=== PATIENT | male | born 1985 | race African-American/Black ===

== ENCOUNTER 2022-06-22 12:03 | Emergency (ER) | payer BC, SELFPAY ==
--- NOTE | 2022-06-22 12:06 | ED.CHESTPAIN ---
HPI - Chest Pain General Chief Complaint: Chest Pain Stated Complaint: Chest pain, shortness of breath, headache Time Seen by Provider: 06/22/22 12:06 Source: patient, family and RN notes reviewed History of Present Illness HPI narrative: Patient is a 36-year-old male who presents the urgent care with complaints of chest pain, shortness of breath and headache. Patient states that it started at 3 AM after an episode of his chronic nausea took place. Patient denies of any abdominal pain. Denies of any history of pancreatitis or heart disease. No other acute complaints. Patient is diaphoretic. Patient read a plan of care. Some parts of this dictation were generated by voice recognition software and may contain typographical and/or grammatical inaccuracies. Related Data Home Medications Medication Instructions Recorded Confirmed dicyclomine 10 mg capsule 10 mg PO TID 06/22/22 06/22/22 escitalopram oxalate 10 mg tablet 10 mg PO DAILY 06/22/22 06/22/22 pantoprazole 40 mg tablet,delayed 10 mg PO DAILY 06/22/22 06/22/22 release terbinafine HCl 250 mg tablet 250 mg PO DAILY 06/22/22 06/22/22 Allergies Allergy/AdvReac Type Severity Reaction Status Date / Time No Known Allergies Allergy Verified 06/22/22 12:18 Review of Systems Review of Systems: CONSTITUTIONAL: Denies fever, chills, or sweats. EYES: Denies visual changes, redness, or discharge. ENT: Denies rhinorrhea, congestion, sore throat, or otalgia. CARDIOVASCULAR: Reports of chest pain without palpitations or edema RESPIRATORY: Denies cough or dyspnea. GASTROINTESTINAL: Reports of acute on chronic nausea and vomiting GENITOURINARY: Denies dysuria or hematuria. SKIN: Denies rash or itching. MUSCULOSKELETAL: Denies back pain, joint pain, or myalgia. NEUROLOGIC: Denies headache, numbness, or weakness. All other systems reviewed are negative, except as documented in HPI. PMFSH Comments At the time of my signature, I reviewed and agree with the nursing past medical, surgical, social, and family history. There is no relevant family history pertinent to the patient complaint. Exam Narrative: GENERAL: This is a well-nourished, well-developed patient. Diaphoretic and anxious HEAD: normocephalic, atraumatic. EYES: PERRL. Sclera clear/white. Vision is grossly intact. EARS: External ears normal NOSE: External nose normal with no obvious nasal discharge, nares without redness, no rhinorrhea. THROAT: Mucous membranes moist NECK: Neck supple, non-tender without lymphadenopathy, masses or thyromegaly. CARDIOVASCULAR: Regular rate and rhythm without murmurs, gallops, or rubs. RESPIRATORY: Clear to auscultation. Breath sounds equal bilaterally. No wheezes, rales, or rhonchi. GASTROINTESTINAL: Abdomen soft, diffuse tenderness , nondistended. Bowel sounds are active. SKIN: warm, intact with no suspicious lesions or rash, good texture and turgor. NEURO: awake, alert, and oriented to person, place and time. There were no obvious focal neurologic abnormalities. EXTREMITIES: No clubbing, cyanosis, or edema. Course Course Level of Care: Express Care Visit Vital Signs Vital signs: Vital Signs Oxygen Flow Rate 2 06/22/22 12:06 Temperature 100.4 F H 06/22/22 12:15 Pulse Rate 86 06/22/22 12:15 Respiratory Rate 20 06/22/22 12:15 Blood Pressure 172/93 H 06/22/22 12:15 Pulse Oximetry 100 06/22/22 12:15 Oxygen Delivery Room Air 06/22/22 12:15 Oxygen Flow Rate 2 06/22/22 12:06 Reviewed-patient is informed that they may have pre-hypertension or hypertension based on a blood pressure reading in the department. I recommend the patient call the primary care provider listed on their discharge instructions or a physician of their choice this week to arrange follow-up for further evaluation of possible pre-hypertension or hypertension. Transfer Transfered to: [facility] Transportation: ALS Transfer rationale: Chest pain, diaphoresis, shortness o
[2022-06-22 12:15] VITALS: BP 172/93; PULSE 86; RESP 20; TEMP 38; O2SAT 100
[2022-06-22] MEDS: ASPIRIN 81 MG CHEWABLE TABLET 324 MG PO (12:20)
--- NOTE | 2022-06-22 12:26 | ECG_ITS ---
Measurements Intervals [place] Rate: 86 P: 63 DE: 158 QRS: 58 QRSD: 81 T: 22 QT: 340 QTc: 407 Interpretive Statements SINUS RHYTHM NORMAL ECG NO PREVIOUS ECG AVAILABLE FOR COMPARISON Electronically Signed On 06-22-2022 12:52:04 CDT by Gunner Reaves D.O.
== END 2022-06-22 12:25 | disposition short-term general hospital (02) ==
PROVIDERS: Emergency Provider Nurse Practitioner Family
DX: R07.9 Chest pain, unspecified (principal); F41.9 Anxiety disorder, unspecified; F32.A Depression, unspecified
CPT/HCPCS: 93005; 99215; A9270; G0463

== ENCOUNTER 2022-08-05 13:45 | Emergency (ER) | payer BC, SELFPAY ==
--- NOTE | 2022-08-05 13:48 | PC.NURSE ---
After checking pt in, pt looks at waiting room and asks if it is a long wait. This RN states that we are full. Pt replies that ill go somewhere else . Ambulated to exit
== END 2022-08-05 13:48 | disposition left against medical advice (07) ==
DX: Z53.21 Procedure and treatment not carried out due to patient leaving prior to being seen by health care provider (principal)
CPT/HCPCS: 99199

== ENCOUNTER 2024-06-06 15:42 | Emergency (ER) | payer BC, SELFPAY ==
[2024-06-06] VITALS (9 sets, daily range): BP systolic 140–159; BP diastolic 70–106; PULSE 64–84; RESP 16–24; TEMP 36.1–37; O2SAT 91–100
--- NOTE | ~2024-06-06 | CT_ITS ---
EXAMINATION: CT abdomen pelvis w con DATE: 06/06/2024 17:36 INDICATION: Left lower quadrant abdominal pain. TECHNIQUE: Computed tomography (CT) of the abdomen and pelvis was performed with 100 mL Omnipaque 350 intravenous contrast. Automated exposure control and iterative reconstruction technique were employe d. The dose-length product was 691.07 mGy-cm. COMPARISON: None. FINDINGS: The visualized portions of lung bases demonstrate mild atelectasis. No pleural effusion. Th e heart size is normal. No pericardial effusion. There is bilateral gynecomastia. The liver, gallblad gabriel, spleen, pancreas, adrenal glands, and kidneys are normal. There are no dilated loops of bowel. T he appendix is normal. There are no pathologically enlarged lymph nodes. There is no free intraperito hernando fluid. There is a 11 mm sclerotic lesion in right ilium, probably a benign bone island. IMPRESSION: 1. No etiology for the patient's symptoms. Reviewed, dictated and finalized at location A.
--- NOTE | 2024-06-06 15:47 | ED.NAVMDI ---
HPI - Nausea/Vomiting/Diarrhea General Chief complaint: Abdominal Pain Stated complaint: VOMITING Time Seen by Provider: 06/06/24 15:47 Source: patient Mode of arrival: ambulatory Limitations: no limitations History of Present Illness HPI Narrative: 38-year-old male with a history of irritable bowel syndrome ( unremarkable colonoscopy) on dicyclomine, peptic ulcer disease on Protonix presents to the ED with a 10 hour history of -- nausea with multiple episodes of vomiting -- multiple episodes of watery diarrhea -- severe pain in the left lower quadrant -- lightheadedness no fever. Complains of chills. No history of any abdominal surgeries. the patient has not eaten anything out of the ordinary. No other family members are sick. MD elicited complaint: nausea, vomiting and diarrhea Onset (ago): hour(s) ( 10 hours) Description of vomiting: watery Description of diarrhea: watery Associated nausea: Yes Associated abdominal pain: Yes Location of pain: LLQ Pain consistency: constant Severity: severe Quality: cramping Exacerbating factors: none Relieving factors: none Related Data Allergies Allergy/AdvReac Type Severity Reaction Status Date / Time No Known Allergies Allergy Verified 06/06/24 16:00 Review of Systems Review of Systems: All systems reviewed & are unremarkable except as noted in HPI and below Constitutional: Constitutional: Reports as per HPI and Reports no additional constitutional complaints Eyes: Eyes: Reports as per HPI and Reports no additional eye complaints ENT: Reports system reviewed and no additional complaints, except as documented and Reports as per HPI Cardiovascular: Cardiovascular: Reports as per HPI and Reports no additional cardiovascular complaints Respiratory: Respiratory: Reports as per HPI and Reports no additional respiratory complaints Gastrointestinal: Gastrointestinal: Reports as per HPI and Reports no additional gastrointestinal complaints Genitourinary: Genitourinary: Reports no additional male genitourinary complaints and Reports as per HPI Musculoskeletal: Musculoskeletal: Reports no additional musculoskeletal complaints and Reports as per HPI Integumentary/Breasts: Skin/Breast: Reports system reviewed and no additional complaints, except as docu and Reports as per HPI Neurologic: Reports system reviewed and no additional complaints, except as documented and Reports as per HPI Psychiatric: Psychiatric: Reports no additional psychiatric complaints and Reports as per HPI Endocrine: Endocrine: Reports no additional endocrine complaints and Reports as per HPI Hematologic/Lymphatic: Hematologic/Lymphatic: Reports no additional hematologic/lymphatic complaints and Reports as per HPI Allergic/Immunologic: Allergic/Immunologic: Reports no additional allergic/immunologic complaints and Reports as per HPI [facility] Past Medical History Medical History (Updated 06/06/24 @ 18:01 by Charli Dawson MD) IBS (irritable bowel syndrome) Normal colonoscopy Peptic ulcer disease Exam Narrative: blood pressure 157/106. Heart rate of 64. Afebrile. Const: General: ill appearing Orientation/consciousness: patient oriented x3 Limitations: no limitations HENMT: Head: normal to inspection Ears: external ears normal Face/Nose/Sinus: Normal external nose present Face and sinus: normal facial exam Mouth: Yes Normal oral and palatal mucosa present Throat: posterior oropharynx normal Eyes: Conjunctivae: conjunctivae normal Cornea: corneas normal Pupils: Equal, round and reactive pupils present EOM: EOMs intact bilaterally Direct Ophthalmoscopy: no photophobia Neck: Neck: normal visual inspection, no lymphadenopathy and no meningeal signs Chest: Chest palpation & inspection: normal inspection of the chest Resp: Effort & Inspection: normal respiratory effort Auscultation: clear to auscultation bilaterally Cardio: Rate: regular rate Rhythm: regular rhythm GI: GI Pa
[2024-06-06] MEDS: LACTATED RINGERS 1,000 ML 999 ML IV CONT ×2 (16:01→17:34)
[2024-06-06] MEDS: PROCHLORPERAZINE EDISYLATE 10 MG/2 ML VIAL IV PUSH (16:03)
[2024-06-06] MEDS: MORPHINE SULFATE (*CRX) 2 MG/ML INJ IV PUSH (16:03)
[2024-06-06 16:13] LABS: Basophils Absolute Auto 0.03 K/mm3 (0.00-0.10); Basophils Percent Auto 0.4 % (0.0-1.0); Eosinophils Absolute Auto 0.01 K/mm3 (0.02-0.50); Eosinophils Percent Auto 0.1 % (1.0-6.0); Hemoglobin 15.5 g/dL (14.0-18.0); Immature Granulocyte Absolute 0.02 K/mm3 (0.00-0.00); Immature Granulocyte Percent A 0.3 % (0.0-0.0); Mean Platelet Volume 10.6 fl (8.7-11.0); Monocytes Absolute Auto 0.28 K/mm3 (0.10-0.90); Neutrophils Absolute Auto 5.51 K/mm3 (1.70-7.20); Neutrophils Percent Auto 78.2 % (50.0-70.0); Platelet Count Result 254 K/mm3 (150-420); Red Cell Distribution Width 12.2 % (11.6-14.4); White Blood Count 7.1 K/mm3 (4.8-10.8)
[2024-06-06 16:23] LABS: Prothrombin Time 10.7 Seconds (9.50-12.1)
[2024-06-06 16:26] LABS: Alanine Aminotransferase 24 U/L (16-63); Albumin Level 4.9 g/dL (3.4-5.0); Alkaline Phosphatase 90 U/L (46-116); Anion Gap 17 mmol/L (4-12); Aspartate Amino Transferase 17 U/L (15-37); Bilirubin,Total 0.5 mg/dL (0.00-1.00); Blood Urea Nitrogen 5 mg/dL (7-18); Calcium 10.3 mg/dL (8.5-10.1); Carbon Dioxide 23 mmol/L (21-32); Chloride 99 mmol/L (98-108); Estimated CRCL calculation 84 ml/min; Estimated Glomerular Filt Rate > 60; Glucose 129 mg/dL (70-99); Lipase 41 U/L (16-77); Magnesium 1.7 mg/dL (1.8-2.4); Osmolality Calculated 287 mOsm/kg (285-295); Potassium 3.4 mmol/L (3.5-5.1); Sodium 139 mmol/L (136-145); Total Protein 8.6 g/dL (6.4-8.2)
[2024-06-06 16:31] LABS: Lactic Acid Reflex 2.4 mmol/L (0.4-2.0)
[2024-06-06 16:46] LABS: SARS-CoV-2 RNA PCR Negative (Negative)
[2024-06-06 16:51] LABS: Influenza A QL RT-PCR Negative (Negative); Influenza B QL RT-PCR Negative (Negative); RSV RNA, RT-PCR Negative (Negative)
[2024-06-06] MEDS: MAGNESIUM SULF 2 GM/WATER 50ML 2 GM/50 ML BAG IVPB (17:34)
[2024-06-06 19:11] LABS: Reflex Lactic Acid Yes or No Add Lactic
--- NOTE | 2024-06-21 09:55 | PC.NURSE ---
2gm magnesuim sulfate iv stopped at 1815 during pt discharge. infusion complete at that time.
== END 2024-06-06 18:15 | disposition home or self-care (01) ==
PROVIDERS: Emergency Provider Internal Medicine Critical Care Medicine
DX: K52.9 Noninfective gastroenteritis and colitis, unspecified (principal); E87.8 Other disorders of electrolyte and fluid balance, not elsewhere classified; Z20.822 Contact with and (suspected) exposure to COVID-19
CPT/HCPCS: 36415; 74177; 80053; 83605; 83690; 83735; 85025; 85610; 87637; 96361; 96365; 96375; 99284; J0780; J2270; J3475; J7120; Q9967

== ENCOUNTER 2025-02-07 03:04 | Emergency (ER) | payer BC, SELFPAY ==
--- NOTE | ~2025-02-07 | CT_ITS ---
Non-contrast CT scan of the Abdomen and Pelvis Clinical indication: Abdominal pain Technique: 2.5 mm axial scans were obtained through the abdomen and pelvis without intravenous or or al contrast. Dose reduction technique was used on this scan by utilizing automated exposure control a nd iterative reconstruction technique. The dose-length product (DLP) was 271.33 mGy-cm. COMPARISON: 06/06/2024 Findings: Images through the lung bases reveal no abnormalities. There is no evidence of renal or ureteral calculi. The kidneys and the ureters are nondilated. The liver, spleen, pancreas, gallbladder, and adrenals appear normal. There is no aortic aneurysm. There is no evidence of bowel obstruction. Questionable mild wall thickening of the transverse colon versus underdistention. Images through the pelvis were performed. There is no evidence of ascites or lymphadenopathy. Urinary bladder unremarkable. No pelvic mass seen. Bilateral L5 pars interarticularis defects are present, without subluxation. Impression: Questionable mild wall thickening transverse colon versus underdistention. Correlate for any possibil ity of infectious/inflammatory colitis. No other significant findings. Reviewed, dictated and finalized at [facility]. Impression: Questionable mild wall thickening transverse colon versus underdistention. Tamir elate for any possibility of infectious/inflammatory colitis. No other significant findings.
--- NOTE | 2025-02-07 03:06 | ED.NAVMDI ---
HPI - Nausea/Vomiting/Diarrhea General Chief complaint: Nausea/Vomiting/Diarrhea Stated complaint: n/v/d Time Seen by Provider: 02/07/25 03:05 Source: patient Mode of arrival: ambulatory Limitations: no limitations History of Present Illness HPI Narrative: 39-year-old male with a history of IBS, peptic ulcer disease presents to the ED with a 3 hour history of -- nausea with multiple episodes vomiting -- diffuse abdominal pain no fever chills no diarrhea patient has had prior episodes of abdominal pain /nausea/vomiting. One week ago he had similar symptoms. MD elicited complaint: nausea, vomiting and abdominal pain Pertinent past history: other ( Irritable bowel syndrome) Onset (ago): hour(s) ( 3 hours) Associated nausea: Yes Associated abdominal pain: Yes Location of pain: diffuse Radiation: diffuse Pain consistency: constant Severity: severe Quality: cramping Exacerbating factors: none Relieving factors: none Associated symptoms: denies other symptoms and nausea/vomiting Related Data Allergies Allergy/AdvReac Type Severity Reaction Status Date / Time No Known Allergies Allergy Verified 02/07/25 03:21 Review of Systems Review of Systems: All systems reviewed & are unremarkable except as noted in HPI and below PMFSH Past Medical History Medical History Normal colonoscopy Peptic ulcer disease IBS (irritable bowel syndrome) Exam Narrative: afebrile. blood pressure 130/53 Const: General: ill appearing Orientation/consciousness: patient oriented x3 Limitations: no limitations HENMT: Head: normal to inspection Ears: external ears normal Face/Nose/Sinus: Normal external nose present Face and sinus: normal facial exam Mouth: Yes Normal oral and palatal mucosa present Throat: posterior oropharynx normal Eyes: Conjunctivae: conjunctivae normal Cornea: corneas normal Pupils: Equal, round and reactive pupils present EOM: EOMs intact bilaterally Direct Ophthalmoscopy: no photophobia Neck: Neck: normal visual inspection, no lymphadenopathy and no meningeal signs Chest: Chest palpation & inspection: normal inspection of the chest Resp: Effort & Inspection: normal respiratory effort Auscultation: clear to auscultation bilaterally Cardio: Rate: regular rate Rhythm: regular rhythm GI: GI Palp: Yes Soft to palpation Other: diffuse tenderness without any rigidity /rebound : General: Yes no CVA tenderness Back/Spine/Pelvis: Back: no CVA tenderness Skin: General skin exam: normal color Rashes: no rashes Wounds: no wounds Neuro: General: patient oriented x3, moves all extremities, no meningeal signs, no focal motor deficits and CN's II-XI intact bilaterally Cranial nerves: Yes Nystagmus not present Speech: normal speech Extrem: General: normal to inspection and no clubbing, cyanosis or edema Psych: Mental Status: mental status grossly normal Affect: Anxious affect present Attitude: cooperative Course Course Emergency Course: nausea and vomiting abdominal wall clinical examination revealed generalized tenderness without any rigidity/ rebound. Patient was noted to be afebrile. White count was noted to be 11.6. The patient went on to have a CT of the abdomen and pelvis which revealed questionable mild thickening of the wall of the transverse colon. The patient does not have any diarrhea. Patient's pain has improved. Patient has received 1 L of IV fluids. Will discharge him with Augmentin for questionable colitis even though the patient does not have any diarrhea. Will advise the patient to take p.o. clears and have a follow-up with a physician. Vital Signs Vital signs: Vital Signs Temperature 36.6 C 02/07/25 03:10 Pulse Rate 87 02/07/25 03:10 Respiratory Rate 18 02/07/25 03:10 Blood Pressure 130/53 L 02/07/25 03:10 Pulse Oximetry 97 02/07/25 03:10 Oxygen Delivery Room Air 02/07/25 03:10 Temperature 36.1 C L 02/07/25 06:15 Pulse Rate 64 02/07/25 06:15 Respiratory Rate 18 02/07/25 06:15 Blood Pressure 144/90 H 02/07/25 06:15 Pulse Oximetry 97 02/07/25 06:15 Oxygen Delivery Room Air 02/07/25 06:15 MDM - Nausea/Vomiting/Diarrhea MDM Narrative Medical decision making narrative: Nausea and vomiting colitis Differential Diagnosis Differential diagnosis: Likely food poisoning, gastroenteritis and other ( IBS) Medical Records Attestation: I reviewed the patient's medical records. Lab Data Attestation: I reviewed the patient's lab results. 02/07/25 03:14 02/07/25 03:14 Labs: Lab Results 02/07/25 Range/Units 03:14 WBC 11.6 H (4.8-10.8) K/mm3 RBC 4.86 (4.70-6.10) M/mm3 Hgb 14.9 (14.0-18.0) g/dL Hct 43.7 (40.0-54.0) % MCV 89.9 (78.0-102.0) fL MCH 30.7 (27.0-31.0) pg MCHC 34.1 (32-36) g/dL RDW 13.2 (11.6-14.4) % Plt Count 312 (150-420) K/mm3 MPV 10.3 (8.7-11.0) fl Immature Gran % (Auto) 0.3 H (0.0-0.0) % Neut % (Auto) 66.3 (50.0-70.0) % Lymph % (Auto) 24.7 (18.0-42.0) % [place] % (Auto) 8.1 (2.0-11.0) % Eos % (Auto) 0.3 L (1.0-6.0) % Baso % (Auto) 0.3 (0.0-1.0) % Lymph # (Auto) 2.86 (1.10-4.50) K/mm3 [place] # (Auto) 0.94 H (0.10-0.90) K/mm3 Eos # (Auto) 0.03 (0.02-0.50) K/mm3 Baso # (Auto) 0.03 (0.00-0.10) K/mm3 Abs Immat Gran (auto) 0.03 H (0.00-0.00) K/mm3 Absolute Neuts (auto) 7.71 H (1.70-7.20) K/mm3 Absolute Nucleated RBC 0.00 (0.00-0.00) K/mm3 Nucleated RBC % 0.0 (0-0.0) % Sodium 141 (137-145) mmol/L Potassium 3.7 (3.4-5.0) mmol/L Chloride 101 (98-107) mmol/L Carbon Dioxide 27 (22-30) mmol/L Anion Gap Pending BUN 19 (9-20) mg/dL Creatinine 0.94 (0.7-1.3) mg/dL Estim Creat Clear Calc Pending Estimated GFR Pending Glucose 124 H (65-110) mg/dL Calculated Osmolality Pending Lactic Acid 2.3 H (0.7-2.0) mmol/L Calcium 10.4 H (8.4-10.2) mg/dL Magnesium 2.3 (1.6-2.3) mg/dL Total Bilirubin 0.5 (0.2-1.3) mg/dL AST 38 (17-59) U/L ALT 29 (6-50) U/L Alkaline Phosphatase 75 (38-126) U/L Troponin I < 0.012 (0.000-0.034) ng/mL Total Protein 9.0 H (6.3-8.2) g/dL Albumin 5.2 H (3.5-5.1) g/dL Lipase 65 (23-300) U/L Discharge Plan Discharge Clinical Impression: Colitis Nausea & vomiting Qualifiers: Vomiting type: unspecified Qualified Code(s): R11.2 - Nausea with vomiting, unspecified Patient Disposition: Home Condition: Stable Instructions: Antibiotic Form, Acute Nausea and Vomiting (DC), Colitis (ED) Patient Language: Marshallese Prescriptions: New ondansetron HCl 4 mg tablet 4 mg PO Q8H PRN (Reason: nausea and vomiting) 4 Days Qty: 14 0RF amoxicillin-pot clavulanate 875-125 mg tablet 1 tablet PO Q12H Qty: 14 0RF No Action prochlorperazine maleate [Compazine] 10 mg tablet 10 mg PO Q8H MDD 4 PRN (Reason: nausea and vomiting) Qty: 14 0RF dicyclomine 10 mg capsule 10 mg PO TID PRN (Reason: abdominal pain) Qty: 60 0RF Follow-up/Referrals: UNKNOWN,DOCTOR [Non-Staff] - Time of Disposition: 06:44
[2025-02-07 03:10] VITALS: BP 130/53; PULSE 87; RESP 18; TEMP 36.6; O2SAT 97
[2025-02-07] MEDS: PROCHLORPERAZINE EDISYLATE 10 MG/2 ML VIAL IV PUSH (03:22)
[2025-02-07] MEDS: LACTATED RINGERS 1,000 ML 999 ML IV CONT (03:22)
--- OUTSIDE RECORDS SUMMARY | 2025-02-07 03:23 | XMS_ITS | Clinical Summary ---
Author Organization [facility] Address [address] [place] [address] Care Team Providers Care Polyethylene Combiner Name Role Phone Roger Levin APRN, BOLT LABELER Primary Care Pr ovider Ashley Hallman APRN, BOLT LABELER Unavailable Allergies No known active allergies Medications hydrOXYzine (VISTARIL) 25 MG Capsule Take 25 mg by mouth 3 times daily. 2 Active guar gum (BENEFIBER) PowderIndication s:Irritable bowel syndrome with diarrhea Use as directed 3 Active DULoxetine (CYMBALTA) [address] Adrienne ions:Irritable bowel syndrome with diarrhea,Anxiety Take 1 Capsule by mouth daily. 30 Capsule 1 3 Active HYDROcodone-acet aminophen (NORCO) 5-325 MG TabletIndication s:Crohn's disease (HCC) Take 1-2 Tablets by mouth every 4 hours as needed for Moderate or more severe pain. 20 Tablet 5 Active naloxone HCl (Narcan) 4 MG/0.1ML Liquid 1 [place] by Nasal route as needed for Opioid Reversal. Administer in one nostril for symptoms of overdose (severe sleepiness, breathing problems, not responsive). Call 911. May repeat 1 spray in alternate nostril in 2-3 minutes if needed. 2 Each 5 Active dicyclomine (BENTYL) 20 MG TabletIndication s:Generalized abdominal pain,Irritable bowel syndrome with diarrhea Take 1 Tablet by mouth every 6 hours as needed (abdominal cramping). 60 Tablet 1 5 Active ondansetron (ZOFRAN-ODT) 4 MG TABLET DISPERSIBLEIndic ations:Nausea Take 1 Tablet by mouth every 6 hours as needed for Nausea - 1st line. 10 Tablet 5 Active predniSONE (DELTASONE) 10 MG TabletIndication s:Crohn's disease of colon with complication (HCC) Take 5 Tablets by mouth daily for 10 days, THEN 4 Tablets daily for 7 days, THEN 3 Tablets daily for 7 days, THEN 2 Tablets daily for 7 days, THEN 1 Tablet daily for 7 days. 120 Tablet 5 025 Active omeprazole (PriLOSEC) 40 MG CAPSULE DELAYED RELEASEIndicatio ns:Gastroesophag eal reflux disease, unspecified whether esophagitis present Take 1 Capsule by mouth daily. 90 Capsule 1 5 Active dicyclomine (BENTYL) 20 MG TabletIndication s:Irritable bowel syndrome with diarrhea Take 1 Tablet by mouth every 6 hours as needed (abdominal cramping). 60 Tablet 1 3 025 Discontin ued(Reord er) predniSONE (DELTASONE) 10 MG Tablet Four tablets daily x1 week then 3 tabs daily x1 week then 2 tabs daily x1 week then 1 tab daily x1 week. 70 Tablet 5 025 Discontin ued(Dupli delia Therapy) ondansetron (ZOFRAN-ODT) 4 MG TABLET DISPERSIBLE Take 1 Tablet by mouth every 6 hours as needed for Nausea - 1st line. 10 Tablet 5 025 Discontin ued(Reord er) Active Problems Problem Noted Date Diagnosed Date GERD (gastroesophageal reflux disease) 2 Anxiety 05/14/2022 Intractable abdominal pain 05/13/2022 Encounters Date Type Department Care Team Description 02/05/2025 10:30 AM CDT Office Visit [facility] - G[facility] [address] [place] [phone] Ashley Hallman APRN, BOLT LABELER Gastroesophageal reflux disease, unspecified whether esophagitis present (Primary Dx); Generalized abdominal pain; Crohn's disease of colon with complication (HCC); Irritable bowel syndrome with diarrhea; Nausea Discharge Disposition: Discharged to home or Selfcare 02/05/2025 Travel 01/29/2025 11:09 AM CDT - 01/29/2025 2:11 PM CDT Emergency [facility] Emergency [address] [place] [address] Armando Garcia MD Nausea and vomiting, unspecified vomiting type Discharge Disposition: Discharged to home or Selfcare 01/29/2025 Travel 01/28/2025 7:15 PM CDT - 01/28/2025 11:08 PM CDT Emergency [facility] Emergency [address] [place] [address] Anthony Cook MD Crohn's disease (HCC) Discharge Disposition: Discharged to home or Selfcare 01/28/2025 Travel from Last 3 Months Immunizations Immunization Administration Dates Next Due DTP Vaccine 12/13/1991, 1,07/25/1990,1988 Hepatitis B Vaccine, Pediatric/adolescent 06/28/2000 MMR Vaccine 12/13/1991,01/02/1991 OPV 12/13/1991, 1,07/25/1990,1988 TD VACCINE 06/28/2000 Family History Medical History Relation Name Comments No Known Problems Father No Known Problems Mother Relation Name Status Comments Father Mother Social History Tobacco Use Types Packs/Day Years Used Date Smoking Tobacco: Never Smokeless Tobacco: Never Tobacco Cessation:Counseling Given: Yes Alcohol Use Standard Drinks/Week Comments Not Currently 0 (1 standard drink = 0.6 oz pur e alcohol) Sex and Gender Information Value Date Recorded Sex Assigned at Male 01/28/2025 7:31 PM CDT Legal Sex Male 11:56 PM CDT Gender Identity Male 01/28/2025 7:31 PM CDT Sexual Orientation Not on file Last Filed Vital Signs Vital Sign Reading Time Taken Comments Blood Pressure 142/82 02/05/2025 10:37 AM CDT Pulse 79 02/05/2025 10:37 AM CDT Temperature 37.1 C (98.7 F) 02/05/2025 10:37 AM CDT Respiratory Rate 14 02/05/2025 10:37 AM CDT Oxygen Saturation 98% 02/05/2025 10:37 AM CDT Inhaled Oxygen Concentration - - Weight 71.4 kg (157 lb 6.4 oz) 02/05/2025 10:37 AM CDT Height 180.3 cm (5' 11 ) 02/05/2025 10:37 AM CDT Body Mass Index 21.95 02/05/2025 10:37 AM CDT Plan of Treatment Health Maintenance Due Date Last Done Comments DTaP/Tdap/Td Immunization (5 - Tdap) 06/29/2000 06/28/2000, 12/13/1991, 01/02/1991, Additional history exists Hepatitis B Immunization (2 of 3 - 3-dose series) 07/26/2000 06/28/2000 SARS-COV-2 Immunization ( - season) 2024 Influenza Immunization (Season Ended) 2025 Respiratory Syncytial Virus (RSV) Immunization (Adult) (1 - 1-dose 75+ series) 2060 Hepatitis C Virus (HCV) Screening Discontinued Meningococcal Immunization (ACWY) Aged Out No longer eligible based on patient's age to complete this topic Pneumococcal Immunization Combined Aged Out No longer eligible based on patient's age to complete this topic Rotavirus Immunization Aged Out No lo nger eligible based on patient's age to complete this topic Procedures Procedure Name Priority Date/Time Associated Diagnosis Comments CBC WITH AUTO DIFFERENTIAL STAT 01/29/2025 11:30 AM CDT MAGNESIUM (MG) STAT 01/29/2025 11:30 AM CDT LIPASE STAT 01/29/2025 11:30 AM CDT TROPONIN I, HIGH SENSITIVITY (HSTRP) STAT 01/29/2025 11:30 AM CDT CMP (COMPREHENSIVE METABOLIC PANEL) STAT 01/29/2025 11:30 AM CDT COMPLETE BLOOD COUNT (CBC) WITH DIFF STAT 01/29/2025 11:30 AM CDT URINALYSIS REFLEX IF INDICATED BY ABNORMAL RESULTS STAT 01/28/2025 9:[address] ABDOMEN PELVIS W/ CONTRAST Stat with Interpretation 01/28/2025 8:20 PM CDT GOLD TOP TUBE STAT 01/28/2025 7:36 PM CDT BLUE TOP TUBE STAT 01/28/2025 7:36 PM CDT EXTRA TUBES STAT 01/28/2025 7:36 PM CDT CBC WITH AUTO DIFFERENTIAL STAT 01/28/2025 7:23 PM CDT ERYTHROCYTE SEDIMENTATION RATE (ESR) STAT 01/28/2025 7:23 PM CDT C-REACTIVE PROTEIN (CRP) QUANT STAT 01/28/2025 7:23 PM CDT LIPASE STAT 01/28/2025 7:23 PM CDT CMP (COMPREHENSIVE METABOLIC PANEL) STAT 01/28/2025 7:23 PM CDT COMPLETE BLOOD COUNT (CBC) WITH DIFF STAT 01/28/2025 7:23 PM CDT from Last 3 Months Results * TROPONIN I, HIGH SENSITIVITY (HSTRP) (01/29/2025 11:30 AM CDT) Pathologist [facility] TROPONIN I, HIGH SENSITIVITY- REECE <3 <=35 ng/L 01/29/2025 12:29 PM CDT [facility] Comment: High-sensitivity troponin I results are reported in ng/L making the result appear to be 1,000 times higher than the contemporary troponin I value which is reported in ng/ml. Results from [facility]. Blood Venipuncture / Unknown 01/29/2025 11:30 AM CDT 01/29/2025 12:03 PM CDT us Armando Garcia MD CHEMISTRY ORDERABLES Lucy laly Result [facility] [address] [place] [address] * (ABNORMAL) CBC with Auto Differential (01/29/2025 11:30 AM CDT) Only the most recent of2 resultswithin the time period is included. WBC 7.13 4.00 - 12.00 10(3)/mcL 01/29/2025 12:05 PM CDT [facility] RBC 4.52 4.40 - 5.80 10(6)/mcL 01/29/2025 12:05 PM CDT [facility] HEMOGLOBIN (HGB) 14.0 13.0 - 16.5 g/dL 01/29/2025 12:05 PM CDT [facility] HEMATOCRIT (HCT) 40.2 38.0 - 50.0 % 01/29/2025 12:05 PM CDT [facility] MCV 88.9 82.0 - 96.0 fL 01/29/2025 12:05 PM CDT [facility] MCH 31.0 26.0 - 32.0 pg 01/29/2025 12:05 PM CDT [facility] MCHC 34.8 31.0 - 36.0 g/dL 01/29/2025 12:05 PM CDT [facility] PLATELET COUNT 248 140 - 440 10(3)/mcL 01/29/2025 12:05 PM CDT [facility] RDW 12.8 11.8 - 15.5 % 01/29/2025 12:05 PM CDT [facility] MPV 11.0 8.0 - 12.6 fL 01/29/2025 12:05 PM CDT [facility] NEUTROPHILS 76.6(H) 40.0 - 68.0 % 01/29/2025 12:05 PM CDT [facility] LYMPHOCYTES 16.5(L) 19.0 - 49.0 % 01/29/2025 12:05 PM CDT [facility] MONOCYTES 6.6 3.0 - 13.0 % 01/29/2025 12:05 PM CDT [facility] EOSINOPHILS 0.0 0.0 - 8.0 % 01/29/2025 12:05 PM CDT [facility] BASOPHILS 0.3 0.0 - 1.0 % 01/29/2025 12:05 PM CDT [facility] ABSOLUTE NEUTROPHILS 5.46(H) 1.40 - 5.30 10(3)/mcL 01/29/2025 12:05 PM CDT [facility] ABSOLUTE LYMPHOCYTES 1.18 0.90 - 3.30 10(3)/[facility] 01/29/2025 12:05 PM CDT [facility] ABSOLUTE MONOCYTES 0.47 0.10 - 0.90 10(3)/[facility] 01/29/2025 12:05 PM CDT [facility] ABSOLUTE EOSINOPHIL 0.00 0.00 - 0.50 10(3)/[facility] 01/29/2025 12:05 PM CDT [facility] ABSOLUTE BASOPHILS 0.02 0.00 - 0.10 10(3)/[facility] 01/29/2025 12:05 PM CDT [facility] NRBC PER 100 WBC 0 01/30/20 25 12:05 PM CDT [facility] Blood Venipuncture / Unknown 01/29/2025 11:30 AM CDT 01/29/2025 12:03 PM CDT us Armando Garcia MD HEMATOLOGY ORDERABLES Fin al Result [facility] [address] [place] [address] * Magnesium (01/29/2025 11:30 AM CDT) MAGNESIUM 1.8 1.6 - 2.6 mg/dL 01/29/2025 12:26 PM CDT [facility] Blood Venipuncture / Unknown 01/29/2025 11:30 AM CDT 01/29/2025 12:03 PM CDT Armando Garcia MD CHEMISTRY ORDERABLES Lucy l Result Performing Organization Address City/[facility]/ZIP Co de Phone Number [facility] [address] [place] [address] * Lipase (01/29/2025 11:30 AM CDT) Only the most recent of2 resultswithin the time period is included. LIPASE 73 8 - 78 U/L 01/29/2025 12:26 PM CDT [facility] Blood Venipuncture / Unknown 01/29/2025 11:30 AM CDT 01/29/2025 12:03 PM CDT Armando Garcia MD CHEMISTRY ORDERABLES Lucy l Result Performing Organization Address City/[facility] [[email or web address]] Co de Phone Number [facility] [address] [place] [address] * (ABNORMAL) CMP (01/29/2025 11:30 AM CDT) Only the most recent of2 resultswithin the time period is included. SODIUM 142 136 - 145 mmol/L 01/29/2025 12:26 PM CDT [facility] POTASSIUM 3.5 3.5 - 5.1 mmol/L 01/29/2025 12:26 PM CDT [facility] CHLORIDE 108(H) 98 - 107 mmol/L 01/29/2025 12:26 PM CDT [facility] CO2, VENOUS 23 22 - 30 mmol/L 01/29/2025 12:26 PM CDT [facility] ANION GAP 14.5 <18.0 mmol/L 01/29/2025 12:26 PM CDT [facility] GLUCOSE 108(H) 70 - 99 mg/dL 01/29/2025 12:26 PM CDT [facility] BUN 7(L) 9 - 21 mg/dL 01/29/2025 12:26 PM T [facility] CREATININE, BLOOD 0.87 0.70 - 1.30 mg/dL 01/29/2025 12:26 PM T [facility] BUN/CREATININE RATIO 8(L) 12 - 20 ratio 01/29/2025 12:26 PM T [facility] TOTAL PROTEIN 8.0 6.0 - 8.0 g/dL 01/29/2025 12:26 PM T [facility] ALBUMIN 4.7 3.5 - 5.0 g/dL 01/29/2025 12:26 PM [facility] A/G RATIO 1.4 1.0 - 2.2 01/29/2025 12:26 PM T [facility] CALCIUM 9.5 8.7 - 10.5 mg/dL 01/29/2025 12:26 PM T [facility] T BILI 0.6 0.2 - 1.2 mg/dL 01/29/2025 12:26 PM T [facility] SGOT (AST) 29 <43 U/L 01/29/2025 12:26 PM [facility] SGPT (ALT) 21 <56 U/L 01/29/2025 12:26 PM [facility] ALKALINE PHOSPHATASE 71 40 - 150 U/L 01/29/2025 12:26 PM T [facility] GFR, ESTIMATED >60 >=60 01/29/2025 12:26 PM [facility] Comment: Creatinine Clearance is the preferred criteria for selecting drug dose adjustments in renally impaired patients. The GFR is provided as additional pertinent clinical information. GFR is reported in mL/min/1.73 sq m. Calculation based on the Chronic Kidney Disease Epidemiology Collaboration (CKD- EPI) equation refit without adjustment for race. GFR, EST. >60 >=60 025 12:26 PM T [facility] GFR, EST. NONAFRICAN >60 >=60 01/29/2025 12:26 PM CDT [facility] Blood Venipuncture / Unknown 01/29/2025 11:30 AM CDT 01/29/2025 12:03 PM CDT us Armando Garcia MD CHEMISTRY ORDERABLES Lucy l Result [facility] [address] [place] [address] * (ABNORMAL) Urinalysis w/ Reflex (01/28/2025 9:51 PM CDT) SPECIFIC GRAVITY 1.020 1.003 - 1.030 01/28/2025 10:14 PM CDT [facility] URINE PH 8.0 5.0 - 9.0 01/28/2025 10:14 PM CDT [facility] WBC ESTERASE Negative Negative 01/28/2025 10:14 PM CDT [facility] NITRITE Negative Negative 01/28/2025 10:14 PM CDT [facility] PROTEIN, RANDOM URINE 30 mg/dL(A) Negative 01/28/2025 10:14 PM CDT [facility] URINE GLUCOSE, QUAL Negative Negative 01/28/2025 10:14 PM CDT [facility] URINE KETONES 15 mg/dL(A) Negative 01/28/2025 10:14 PM CDT [facility] UROBILINOGEN Normal Normal mg/dL 01/28/2025 10:14 PM CDT [facility] URINE BLOOD 10 /uL(A) Negative rina/ul 01/28/2025 10:14 PM CDT [facility] URINALYSIS COLOR Yellow 01/29/20 10:14 PM CDT [facility] URINALYSIS CLARITY Clear 01/28/2025 10:14 PM CDT [facility] WBC (Urine) 0-5 Negative, 0-5 /hpf 01/28/2025 10:14 PM CDT [facility] URINE RBC'S 0-2 Negative, 0-2 /hpf 01/28/2025 10:14 PM CDT [facility] EPITHELIAL CELLS Negative /lpf 01/29/20 10:14 PM CDT [facility] BACTERIA, URINE Negative Negative /hpf 01/28/2025 10:14 PM CDT [facility] Urine URINE SPECIMEN / Unknown Non-Phlebotomy Collection / Unknown 01/28/2025 9:51 PM CDT 01/28/2025 9:59 PM CDT us Anthony Cook MD URINE ORDERABLES Final Re sult [facility] [address] [place] [address] * CT ABDOMEN PELVIS W/ CONTRAST (01/28/2025 8:20 PM CDT) Anatomical Region Laterality Modality Abdomen N/A Computed Tomogra phy 01/28/2025 9:03 PM CDT Impressions 01/28/2025 9:06 PM CDT IMPRESSION: Very subtle/mild diffuse colitis. Narrative 01/28/2025 9:06 PM CDT EXAM DESCRIPTION: CT ABDOMEN PELVIS W/ CONTRAST REASON FOR STUDY: Generalized abdominal pain and vomiting starting around 1400 today. Hx of Crohn's TECHNIQUE: CT scan of the abdomen and pelvis performed with intravenous and without oral contrast using helical scanning technique with dynamic intravenous contrast injection. Reconstructed coronal and sagittal MPR images reviewed. All images stored on PACS. Automated exposure control was used as a dose optimization technique for this examination. CONTRAST TYPE/DOSE: 85mL of IOPAMIDOL 76 % IV SOLN injected via Intravenous COMPARISON: 08/05/2022 FINDINGS: LOWER CHEST: Lung bases are clear. Heart size normal. No effusion. LIVER/BILIARY: Liver unremarkable. Biliary tree normal in caliber. GALLBLADDER: Normal. SPLEEN: Normal. PANCREAS: Normal. ADRENAL GLANDS: Normal. KIDNEYS/URINARY TRACT: Unremarkable. GI: Stomach and small bowel appear normal. Mild diffuse colon wall haziness. Normal appendix. OTHER ABDOMINAL/PELVIS: Major vascular structures are patent and normal in caliber. No enlarged lymph node or free fluid. MSK: Nondisplaced L5 pars defects. BODY WALL: Unremarkable. THIS IS AN ELECTRONICALLY VERIFIED FINAL REPORT 01/28/2025 9:03 PM - Electronically signed by Raleigh Smith M.D. AR: DEYSI Report ID: [id number] Reading Location: [id number] Procedure Note Raleigh Smith MD - 01/28/2025 EXAM DESCRIPTION: CT ABDOMEN PELVIS W/ CONTRAST REASON FOR STUDY: Generalized abdominal pain and vomiting starting around 1400 today. Hx of Crohn's TECHNIQUE: CT scan of the abdomen and pelvis performed with intravenous and without oral contrast using helical scanning technique with dynamic intravenous contrast injection. Reconstructed coronal and sagittal MPR images reviewed. All images stored on PACS. Automated exposure control was used as a dose optimization technique for this examination. CONTRAST TYPE/DOSE: 85mL of IOPAMIDOL 76 % IV SOLN injected via Intravenous COMPARISON: 08/05/2022 FINDINGS: LOWER CHEST: Lung bases are clear. Heart size normal. No effusion. LIVER/BILIARY: Liver unremarkable. Biliary tree normal in caliber. GALLBLADDER: Normal. SPLEEN: Normal. PANCREAS: Normal. ADRENAL GLANDS: Normal. KIDNEYS/URINARY TRACT: Unremarkable. GI: Stomach and small bowel appear normal. Mild diffuse colon wall haziness. Normal appendix. OTHER ABDOMINAL/PELVIS: Major vascular structures are patent and normal in caliber. No enlarged lymph node or free fluid. MSK: Nondisplaced L5 pars defects. BODY WALL: Unremarkable. THIS IS AN ELECTRONICALLY VERIFIED FINAL REPORT 01/28/2025 9:03 PM - Electronically signed by Raleigh Smith M.D. AR: DEYSI Report ID: [id number] Reading Location: [id number] IMPRESSION: Very subtle/mild diffuse colitis. us Anthony Cook MD IMG CT ORDERABLES Final R esult * Gold Top Tube (01/28/2025 7:36 PM CDT) Blood No Phlebotomy Charged / Unknown 01/28/2025 7:36 PM CDT 01/28/2025 7:36 PM CDT Anthony Cook MD CHEMISTRY ORDERABLES Lucy l Result Performing Organization Address City/[facility] [[email or web address]] Co de Phone Number [facility] [address] [place] [address] * Blue Top Tube (01/28/2025 7:36 PM CDT) Blood No Phlebotomy Charged / Unknown 01/28/2025 7:36 PM CDT 01/28/2025 7:36 PM CDT Anthony Cook MD HEMATOLOGY ORDERABLES Fin al Result Performing Organization Address [facility] [[email or web address]] Co de Phone Number [facility] [address] [place] [address] * (ABNORMAL) Sed Rate (Esr) [id number] (01/28/2025 7:23 PM CDT) ESR (SED RATE, ERYTHROCYTE SEDIMENTATION RATE) 20(H) <15 mm/h 01/28/2025 7:55 PM CDT [facility] Comment: Patients presenting with increased level of fibrinogen, gamma globulins, or abnormally shaped RBCs could affect the results for the erythrocyte sedimentation rate (ESR). Results should be clinically correlated. Blood Venipuncture / Unknown 01/28/2025 7:23 PM CDT 01/28/2025 7:36 PM CDT Anthony Cook MD HEMATOLOGY ORDERABLES Fin al Result Performing Organization Address City/[facility]/ZIP Co de Phone Number [facility] [address] [place] [address] * C-Reactive Protein Qnt (Crp) (01/28/2025 7:23 PM CDT) C-REACTIVE PROTEIN <0.10 <0.50 mg/dL 01/28/2025 8:04 PM CDT [facility] Blood Venipuncture / Unknown 01/28/2025 7:23 PM CDT 01/28/2025 7:36 PM CDT us Anthony Cook MD CHEMISTRY ORDERABLES Lucy laly Result [facility] [address] [facility] [place] [address] from Last 3 Months Insurance ID [employer] on file [facility] Advance Directives * Full Code (Latest Code Status on File) Date Activated Date Inactivated Comments 05/13/2022 11:42 PM 05/14/2022 9:30 PM CPR-Full Lenora tment: FULL ARREST: Attempt Resuscitation/CPR wit intubation and mechanical ventilation. PRE-ARREST: Use entire range of life support measures to stabilize the patient. Care Teams Polyethylene Combiner Relationship Specialty Start Date End Date Roger Levin APRN, BOLT LABELER [address] [address] PCP - General Advanced Practice Nurse 06/07/23 Ashley Hallman APRN, BOLT LABELER [address] [place] [address] Nurse Practitioner Advanced Practice Nurse 02/04/25
[2025-02-07 03:25] LABS: Basophils Absolute Auto 0.03 K/mm3 (0.00-0.10); Basophils Percent Auto 0.3 % (0.0-1.0); Eosinophils Absolute Auto 0.03 K/mm3 (0.02-0.50); Eosinophils Percent Auto 0.3 % (1.0-6.0); Hematocrit 43.7 % (40.0-54.0); Hemoglobin 14.9 g/dL (14.0-18.0); Immature Granulocyte Absolute 0.03 K/mm3 (0.00-0.00); Immature Granulocyte Percent A 0.3 % (0.0-0.0); Lymphocytes Absolute Auto 2.86 K/mm3 (1.10-4.50); Lymphocytes Percent Auto 24.7 % (18.0-42.0); Mean Corpuscular HGB Conc 34.1 g/dL (32-36); Mean Corpuscular Hemoglobin 30.7 pg (27.0-31.0); Mean Corpuscular Volume 89.9 fL (78.0-102.0); Mean Platelet Volume 10.3 fl (8.7-11.0); Monocytes Absolute Auto 0.94 K/mm3 (0.10-0.90); Monocytes Percent Auto 8.1 % (2.0-11.0); Neutrophils Absolute Auto 7.71 K/mm3 (1.70-7.20); Neutrophils Percent Auto 66.3 % (50.0-70.0); Platelet Count Result 312 K/mm3 (150-420); Red Blood Count 4.86 M/mm3 (4.70-6.10); Red Cell Distribution Width 13.2 % (11.6-14.4); White Blood Count 11.6 K/mm3 (4.8-10.8)
--- NOTE | 2025-02-07 04:38 | PC.NURSE ---
patient called out, now stating he is having more pain. patient responded well to the initial dose of Compazine. see MAR. patient aware he cannot have anything to eat/drink. call light within reach, visitor at bedside.
--- NOTE | 2025-02-07 04:51 | PC.NURSE ---
Dr. Dawson at bedside for patient re-evaluation.
[2025-02-07] MEDS: HYDROmorphone HCL INJ (*CRX) 2 MG/ML VIAL 0.5 MG IV PUSH (04:57)
[2025-02-07 05:02] VITALS: BP 155/109; PULSE 62; RESP 18; TEMP 36.1; O2SAT 100
[2025-02-07 05:27] LABS: Alanine Aminotransferase 29 U/L (6-50); Albumin Level 5.2 g/dL (3.5-5.1); Alkaline Phosphatase 75 U/L (38-126); Aspartate Amino Transferase 38 U/L (17-59); Bilirubin,Total 0.5 mg/dL (0.2-1.3); Blood Urea Nitrogen 19 mg/dL (9-20); Calcium 10.4 mg/dL (8.4-10.2); Carbon Dioxide 27 mmol/L (22-30); Chloride 101 mmol/L (98-107); Glucose 124 mg/dL (65-110); Lipase 65 U/L (23-300); Magnesium 2.3 mg/dL (1.6-2.3); Potassium 3.7 mmol/L (3.4-5.0); Sodium 141 mmol/L (137-145)
[2025-02-07 05:29] LABS: Lactic Acid Reflex 2.3 mmol/L (0.7-2.0)
[2025-02-07 05:30] LABS: Reflex Lactic Acid Yes or No Add Lactic
[2025-02-07 05:40] LABS: Troponin I < 0.012 ng/mL (0.000-0.034)
--- NOTE | 2025-02-07 05:50 | PC.NURSE ---
patient to CT scan via wheelchair per renewable energy trader.
[2025-02-07 06:15] VITALS: BP 144/90; PULSE 64; RESP 18; TEMP 36.1; O2SAT 97
--- NOTE | 2025-02-07 06:45 | PC.NURSE ---
SANG Dawson at bedside providing patient update on results and plan of care.
[2025-02-07 10:10] LABS: Anion Gap 13 mmol/L (4-12); Estimated Glomerular Filt Rate > 60
== END 2025-02-07 07:00 | disposition home or self-care (01) ==
PROVIDERS: Emergency Provider Internal Medicine Critical Care Medicine; PCP Family Medicine
DX: K52.9 Noninfective gastroenteritis and colitis, unspecified (principal)
CPT/HCPCS: 36415; 74176; 80053; 83605; 83690; 83735; 84484; 85025; 96361; 96374; 96375; 99284; J0780; J1171; J7120

== ENCOUNTER 2025-04-05 22:16 | Emergency (ER) | payer BC, SELFPAY ==
--- NOTE | ~2025-04-05 | CT_ITS ---
CLINICAL INDICATION: Abdominal pain with vomiting COMPARISON: 02/07/2025 and 06/06/2024. TECHNIQUE: Multiple contiguous axial images of the abdomen and pelvis were performed following the ad ministration of with 100 mL Omnipaque-350 intravenous contrast The dose-length product (DLP) was 239.70 mGy-cm. Automated exposure control and iterative reconstruction technique were employed. FINDINGS/OBSERVATIONS: Visualized lower thorax: The bilateral lung bases are clear. The heart is of normal size, without pericardial effusion. Small hiatal hernia is present. Liver: The liver demonstrates homogeneous enhancement and is not enlarged. Gallbladder and biliary system: The gallbladder is only minimally distended, and otherwise unremarkable. Pancreas: The pancreas enhances homogeneously without ductal dilatation. Spleen: The spleen enhances homogeneously and is not enlarged. Kidneys: The bilateral kidneys enhance symmetrically without hydronephrosis or renal calculi. Adrenal glands: Unremarkable. Gastrointestinal tract: Redemonstration of edematous mural thickening within the colon, originating within the transverse col on and extending caudally to the sigmoid colon. Appendix: The appendix is not definitively visualized. However, no pericecal inflammatory change is identified suggest the presence of acute appendicitis. Vasculature: Unremarkable. Lymph nodes: No pathologically enlarged or morphologically suspicious lymph nodes within the retroperitoneum or at the root of the mesentery. Pelvic structures: The bladder is decompressed, and otherwise unremarkable. The prostate gland is not enlarged. Body wall and musculoskeletal: Small fat-containing umbilical hernia. No significant degenerative disease within the lower thoracic or lumbosacral spine. IMPRESSION: Redemonstration of edematous mural thickening within the colon, similar in appearance to previous exa mination performed 06/06/2024 for which a diffuse colitis is suspected. Reviewed, dictated and finalized at location A. IMPRESSION: Redemonstration of edematous mural thickening within the colon, similar in appe arance to previous examination performed 06/06/2024 for which a diffuse colitis is suspected.
[2025-04-05 22:16] VITALS: BP 167/102; PULSE 75; RESP 20; TEMP 36; O2SAT 97
--- NOTE | 2025-04-05 22:16 | PC.NURSE ---
Pt triaged in waiting room, states he has had vomiting all day and having abd pain. States he hasn't been able to eat or drink anything w/o vomiting. VSS and advised pt will see him when bed is available. Pt given vomit bag in w.r.
--- NOTE | 2025-04-05 22:20 | ED_ITS ---
HPI - Nausea/Vomiting/Diarrhea General Chief complaint: Nausea/Vomiting/Diarrhea Stated complaint: stomach pain Time Seen by Provider: 04/05/25 22:19 Source: patient and family Mode of arrival: ambulatory Limitations: no limitations History of Present Illness HPI Narrative: patient is a 39-year-old male with Crohn's disease here with 2 week history on and off of nausea vomiting and diarrhea. Associated abdominal pain. Left side pain. MD elicited complaint: nausea, vomiting, diarrhea and abdominal pain Pertinent past history: other ( Crohn's disease) Onset (ago): week(s) ( 2) Description of vomiting: watery Description of diarrhea: watery Associated nausea: Yes Associated abdominal pain: Yes Location of pain: LUQ and LLQ Radiation: does not radiate Pain consistency: intermittent Severity: moderate Pain scale (0-10): 7 Quality: cramping and sharp Exacerbating factors: none Relieving factors: none Context: other ( patient with Crohn's disease having nausea vomiting and diarrhea with abdominal pain for the past 2 weeks) Associated symptoms: nausea/vomiting Treatment prior to arrival: none Related Data Allergies Allergy/AdvReac Type Severity Reaction Status Date / Time No Known Allergies Allergy Verified 02/07/25 03:21 Review of Systems Review of Systems: All systems reviewed & are unremarkable except as noted in HPI and below Constitutional: Constitutional: Reports no additional constitutional complaints Eyes: Eyes: Reports no additional eye complaints ENT: Reports system reviewed and no additional complaints, except as documented Cardiovascular: Cardiovascular: Reports no additional cardiovascular complaints Respiratory: Respiratory: Reports no additional respiratory complaints Gastrointestinal: Gastrointestinal: Reports no additional gastrointestinal complaints Genitourinary: Genitourinary: Reports no additional male genitourinary complaints Musculoskeletal: Musculoskeletal: Reports no additional musculoskeletal complaints Integumentary/Breasts: Skin/Breast: Reports system reviewed and no additional complaints, except as docu Neurologic: Reports system reviewed and no additional complaints, except as documented Psychiatric: Psychiatric: Reports no additional psychiatric complaints Endocrine: Endocrine: Reports no additional endocrine complaints Hematologic/Lymphatic: Hematologic/Lymphatic: Reports no additional hematologic/lymphatic complaints Allergic/Immunologic: Allergic/Immunologic: Reports no additional allergic/immunologic complaints PMFSH Past Medical History Medical History Normal colonoscopy Peptic ulcer disease IBS (irritable bowel syndrome) Exam Const: General: ill appearing ( acute pain and nausea vomiting) Nutritional Appearance: well nourished Orientation/consciousness: patient oriented x3 Limitations: no limitations HENMT: Head: normal to inspection Ears: external ears normal Face/Nose/Sinus: Normal external nose present Eyes: Conjunctivae: conjunctivae normal Cornea: corneas normal Pupils: Equal, round and reactive pupils present Neck: Neck: normal visual inspection Chest: Chest palpation & inspection: normal inspection of the chest Resp: Effort & Inspection: normal respiratory effort and not labored Auscultation: clear to auscultation bilaterally and no crackles Cardio: Rate: regular rate Rhythm: regular rhythm Heart sounds: no murmurs GI: Inspection: non-distended GI Palp: Yes Soft to palpation, Yes Tenderness to palpation present (GI) ( left abdomen), No Guarding due to palpation present (GI), No Rigid due to palpation, No Hernia present, No Palpable mass present and No Rebound tenderness present Auscultation: normal bowel sounds : General: Yes bladder normal to palpation Back/Spine/Pelvis: Back: no CVA tenderness Skin: General skin exam: normal color Rashes: no rashes Wounds: no wounds Neuro: General: patient oriented x3, moves all extremities, no meningeal signs, no focal motor deficits and CN's II-XI intact bilaterally Extrem: General: normal to inspection Psych: Mental Status: mental status grossly normal Affect: normal affect Attitude: cooperative Course Vital Signs Vital signs: Vital Signs Temperature 36.0 C L 04/05/25 22:16 Pulse Rate 75 04/05/25 22:16 Respiratory Rate 20 04/05/25 22:16 Blood Pressure 167/102 H 04/05/25 22:16 Pulse Oximetry 97 04/05/25 22:16 Oxygen Delivery Room Air 04/05/25 22:16 Temperature 36.0 C L 04/05/25 22:16 Pulse Rate 75 04/05/25 22:16 Respiratory Rate 20 04/05/25 22:16 Blood Pressure 167/102 H 04/05/25 22:16 Pulse Oximetry 97 04/05/25 22:16 Oxygen Delivery Room Air 04/05/25 22:16 MDM - Nausea/Vomiting/Diarrhea MDM Narrative Medical decision making narrative: patient is a 39-year-old male with Crohn's disease having nausea vomiting and diarrhea with abdominal pain. He has been sick for 2 weeks. We will do labs and a CT scan. CT scan positive for a marti colitis which is going to be a flare of his Crohn's. He had a colonoscopy and an EGD done in the past year with a polyp only found on the upper scope. patient did not want to be transferred for admission. Lab Data Attestation: I reviewed the patient's lab results. Imaging Data Attestation: I personally reviewed and interpreted this imaging study as fol lows: Radiologist's impression: CT scan of the abdomen and pelvis with contrast shows IMPRESSION: Redemonstration of edematous mural thickening within the colon, similar in appearance to previous examination performed 06/06/2024 for which a diffuse colitis is suspected. Discharge Plan Discharge Clinical Impression: Crohn's colitis Qualifiers: Digestive disease complication type: without complication Qualified Code(s): K50.10 - Crohn's disease of large intestine without complications Patient Disposition: Home Condition: Stable Instructions: Antibiotic Form, Crohn Disease (ED) Additional Instructions: please follow-up with the primary doctor and make sure to follow-up with a gastrointestinal technician for further Crohn's following of your disease process. Patient Language: Belarusian Prescriptions: New methylprednisolone [Medrol (Steven)] 4 mg tablets,dose pack See Rx Instructions .ROUTE .COMPLEX Qty: 21 0RF Rx Instructions: orally per package directions ciprofloxacin HCl [Cipro] 500 mg tablet 500 mg PO BID 7 Days Qty: 14 0RF metronidazole 500 mg tablet 500 mg PO TID 7 Days Qty: 21 0RF prochlorperazine maleate [Compazine] 10 mg tablet 10 mg PO Q8H PRN (Reason: nausea and vomiting) Qty: 20 0RF hydrocodone-acetaminophen 5-325 mg tablet 1 tablet PO Q8H PRN (Reason: pain) Qty: 20 0RF Rx Instructions: 1-2 tabs per dose No Action prochlorperazine maleate [Compazine] 10 mg tablet 10 mg PO Q8H MDD 4 PRN (Reason: nausea and vomiting) Qty: 14 0RF dicyclomine 10 mg capsule 10 mg PO TID PRN (Reason: abdominal pain) Qty: 60 0RF ondansetron HCl 4 mg tablet 4 mg PO Q8H PRN (Reason: nausea and vomiting) 4 Days Qty: 14 0RF amoxicillin-pot clavulanate 875-125 mg tablet 1 tablet PO Q12H Qty: 14 0RF Follow-up/Referrals: Maite Hair MD [Physician] - Time of Disposition: 00:46
[2025-04-05] MEDS: PROCHLORPERAZINE EDISYLATE 10 MG/2 ML VIAL IM (22:54)
[2025-04-05] MEDS: SODIUM CHLORIDE 0.9% IV 1,000 ML 999 ML IV CONT (22:56)
[2025-04-05 23:15] LABS: Basophils Absolute Auto 0.02 K/mm3 (0.00-0.10); Basophils Percent Auto 0.2 % (0.0-1.0); Hemoglobin 14.8 g/dL (14.0-18.0); Immature Granulocyte Absolute 0.06 K/mm3 (0.00-0.00); Immature Granulocyte Percent A 0.5 % (0.0-0.0); Lymphocytes Absolute Auto 1.26 K/mm3 (1.10-4.50); Lymphocytes Percent Auto 10.6 % (18.0-42.0); Mean Corpuscular HGB Conc 35.2 g/dL (32-36); Mean Corpuscular Volume 87.9 fL (78.0-102.0); Mean Platelet Volume 10.1 fl (8.7-11.0); Monocytes Absolute Auto 0.85 K/mm3 (0.10-0.90); Monocytes Percent Auto 7.2 % (2.0-11.0); Neutrophils Absolute Auto 9.67 K/mm3 (1.70-7.20); Neutrophils Percent Auto 81.5 % (50.0-70.0); Platelet Count Result 349 K/mm3 (150-420); Red Blood Count 4.78 M/mm3 (4.70-6.10); Red Cell Distribution Width 12.9 % (11.6-14.4); White Blood Count 11.9 K/mm3 (4.8-10.8)
[2025-04-05 23:28] LABS: Alanine Aminotransferase 56 U/L (6-50); Albumin Level 4.9 g/dL (3.5-5.1); Alkaline Phosphatase 77 U/L (38-126); Anion Gap 12 mmol/L (4-12); Aspartate Amino Transferase 49 U/L (17-59); Bilirubin,Total 0.7 mg/dL (0.2-1.3); Blood Urea Nitrogen 13 mg/dL (9-20); Calcium 10.1 mg/dL (8.4-10.2); Carbon Dioxide 24 mmol/L (22-30); Chloride 108 mmol/L (98-107); Estimated CRCL calculation 125 ml/min; Estimated Glomerular Filt Rate > 60; Glucose 122 mg/dL (65-110); Lipase 24 U/L (23-300); Osmolality Calculated 299 mOsm/kg (285-295); Potassium 3.4 mmol/L (3.4-5.0); Sodium 144 mmol/L (137-145); Total Protein 8.3 g/dL (6.3-8.2)
[2025-04-05 23:29] LABS: INR 0.9; Partial Thromboplastin Time 23.7 Sec (23.9-30.70); Prothrombin Time 10.5 Seconds (9.50-12.1)
--- NOTE | 2025-04-06 | PC.NURSE ---
Pt sleeping, no n/v, resting comfortable, g-friend at bedside.
[2025-04-06] MEDS: CIPROFLOXACIN 500 MG TAB PO (00:43)
[2025-04-06] MEDS: methylPREDNISolone SOD SUCC 40 MG VIAL 80 MG IV PUSH (00:43)
[2025-04-06] MEDS: metroNIDAZOLE 250 MG TABLET 500 MG PO (00:43)
[2025-04-06 00:56] VITALS: BP 122/81; PULSE 74; RESP 18; TEMP 36.7; O2SAT 98
== END 2025-04-06 00:56 | disposition home or self-care (01) ==
PROVIDERS: Emergency Provider Emergency Medicine; Referring Provider Internal Medicine
DX: K50.10 Crohn's disease of large intestine without complications (principal)
CPT/HCPCS: 36415; 74177; 80053; 83690; 85025; 85610; 85730; 96361; 96372; 96374; 99284; A9270; J0780; J2919; J7030; Q9967

== ENCOUNTER 2025-05-14 21:59 | Emergency (ER) | payer BC, SELFPAY ==
--- NOTE | ~2025-05-14 | CT_ITS ---
CLINICAL INDICATION: Abdominal pain and vomiting COMPARISON: 04/05/2025. TECHNIQUE: Multiple contiguous axial images of the abdomen and pelvis were performed following the ad ministration of with 100 mL Omnipaque-350 intravenous contrast The dose-length product (DLP) was 365.90 mGy-cm. Automated exposure control and iterative reconstruction technique were employed. FINDINGS/OBSERVATIONS: Visualized lower thorax: The bilateral lung bases are clear. The heart is of normal size, without pericardial effusion. Small hiatal hernia is present. Liver: The liver demonstrates homogeneous enhancement and is not enlarged. Gallbladder and biliary system: The gallbladder is only minimally distended, and otherwise unremarkable. Pancreas: The pancreas enhances homogeneously without ductal dilatation. Spleen: The spleen enhances homogeneously and is not enlarged. Kidneys: The bilateral kidneys enhance symmetrically without hydronephrosis or renal calculi. Adrenal glands: Unremarkable. Gastrointestinal tract: Edematous mural thickening within the transverse colon with surrounding inflammatory change, extendin g to the rectum. Appendix: The air-filled appendix is of normal caliber (axial series, images 128 through 155). Vasculature: Unremarkable. Lymph nodes: No pathologically enlarged or morphologically suspicious lymph nodes within the retroperitoneum or at the root of the mesentery. Pelvic structures: The bladder is only minimally distended, and otherwise unremarkable. The prostate gland is not enlarged. Body wall and musculoskeletal: No significant degenerative disease within the lower thoracic or lumbosacral spine. IMPRESSION: Redemonstration of edematous mural thickening within the colon extending from the transverse colon to the rectum for which a diffuse colitis is suspected. Reviewed, dictated and finalized at location A. IMPRESSION: Redemonstration of edematous mural thickening within the colon extending from t he transverse colon to the rectum for which a diffuse colitis is suspected.
[2025-05-14 22:00] VITALS: BP 180/110; PULSE 77; RESP 24; TEMP 37; O2SAT 100
--- OUTSIDE RECORDS SUMMARY | 2025-05-14 22:00 | XMS_ITS | Clinical Summary ---
Author Organization [facility] Address [address] [place] [address] Care Team Providers Care Front Desk Team Member Name Role Phone Unknown, Provider Primary Care Provider Unavaila ble Source Comments [facility],non-owned Affiliates and Associated Physician Practices is amultiple site organization consisting of ambulatory clinics and hospital sitesin [place], [place], [place] and [place]. This disclosure is being madepursuant to the Care Everywhere program and may not contain all information available regarding this patient. Last updated 18.[facility] Allergies Active Allergy Reactions Criticality Noted Date Comments Pineapple Anaphylaxis,Urticaria High 02/14/2025 rash Medications * Be aware that medications may not be up to date on this document. Alwaysverify current medications with the patient. amoxicillin-cla vulanate (Augmentin) 875-125 MG tablet Take 1 (one) tablet by mouth every 12 hours 02/07/2025 Active dicyclomine (Bentyl) 20 MG tablet Take 1 (one) tablet by mouth every 6 hours as needed 02/05/2025 Active HYDROcodone-sonya taminophen ([place]) 5-325 MG tablet Take 1 (one) tablet to 2 (two) tablets by mouth every 4 hours as needed 01/28/2025 Active naloxone HCl (Narcan) 4 MG/0.1ML nasal spray [place] 1 (one) spray into the nose as needed 01/28/2025 Active omeprazole (PriLOSEC) 40 MG capsule Take 1 (one) capsule by mouth once daily 02/05/2025 Active ondansetron (Zofran) 4 MG tablet Take 1 (one) tablet by mouth every 8 hours as needed 02/07/2025 Active VITAMIN D, CHOLECALCIFEROL , PO Take 1 tablet by mouth once daily Active polyethylene glycol (Gavilyte-C) 240 g solution Drink 3/4th of prep solution at 5pm the night before colonoscopy. Finish the prep at 4am the day of test. 4000 mL 02/14/2025 Active Encounters Date Type Department Care Team Description 02/22/2025 8:06 AM CDT Anesthesia Event [facility] [address] [place] [address] Yohannes Tellez MD Dobbs, Veronica Mena, MANAGER [employer] 02/22/2025 7:55 AM CDT - 02/22/2025 8:45 AM CDT Surgery [facility] [address] [place] [phone] Ramone Blandon MD EGD w/ nicole 02/22/2025 6:57 AM CDT - 02/22/2025 10:43 AM CDT Hospital Encounter [facility] [place] [address] [place] [phone] Ramone Blandon MD Surgery General Discharge Disposition: Home or Self Care 02/22/2025 Travel 02/15/2025 Patient Outreach [facility] [address] [place] [address] Salome Richard RN 02/14/2025 3:30 PM CDT Office Visit [facility] [address] [facility] [place] [address] Ramone Blandon MD Diarrhea, unspecified type (Primary Dx); Melena; Loss of weight; Epigastric pain 02/14/2025 Orders Only [facility] [address] [place] [address] Salome Richard RN 02/14/2025 Travel 02/11/2025 Travel from Last 3 Months Social History Tobacco Use Types Packs/Day Years Used Date Smoking Tobacco: Never Smokeless Tobacco: Never Tobacco Cessation:Counseling Given: Not Answered Alcohol Use Standard Drinks/Week Comments Yes 0 (1 standard drink = 0.6 oz pur e alcohol) occasionally Sex and Gender Information Value Date Recorded Sex Assigned at Not on file Legal Sex Male 10:19 AM CDT Gender Identity Not on file Sexual Orientation Not on file Last Filed Vital Signs Vital Sign Reading Time Taken Comments Blood Pressure 152/104 02/22/2025 10:30 AM CDT Per pt, BP high d/t pain, but does not want any pain meds Pulse 73 02/22/2025 10:30 AM CDT Temperature 35.8 C (96.5 F) 02/22/2025 10:30 AM CDT Respiratory Rate 10 02/22/2025 10:3 0 AM CDT Oxygen Saturation 100% 02/22/2025 10: 30 AM CDT Inhaled Oxygen Concentration - - Weight 74.2 kg (163 lb 9.6 oz) 02/22/2025 7:12 AM CDT Height 180.3 cm (5' 11) 02/22/2025 7:1 2 AM CDT Body Mass Index 22.82 02/22/2025 7:12 AM CDT Plan of Treatment Health Maintenance Due Date Last Done Comments HIV SCREENING 2000 HEPATITIS C SCREENING 06/22/2003 DTAP/TDAP/TD VACCINES (1 - Tdap) 2004 HEPATITIS B VACCINE (1 of 3 - 19+ 3-dose series) 2004 HPV VACCINE (1 - 3-dose SCDM series) 2012 COVID-19 VACCINE (1 - 2023-2 5 season) 2024 DEPRESSION SCREENING 10/10/2024 INFLUENZA VACCINE (#1) 2025 ZOSTER VACCINE (1 of 2) 2035 HIB VACCINE Aged Out No longer eligi ble based on patient's age to complete this topic MENINGOCOCCAL (Group B) VACC INE SHARED DECISION-MAKING Aged Out No longer eligibl e based on patient's age to complete this topic MENINGOCOCCAL GROUPS A/C/Y/W VACCINE Aged Out No longer eligible b ased on patient's age to complete this topic PNEUMOCOCCAL VACCINE Aged Out No long er eligible based on patient's age to complete this topic Goals Goal Patient Goal Type Associated Problems Recent Progress Patient-Stated? Author Medication Management General On track( 025 3:29 PM CDT) No Jason Terrazas, RN Note: Expected end date: ongoing Interventions: Take all medications as prescribed Let your doctor know right away about any changes in your medications Make sure to request a refill of your medication at least one week prior to your last dose Procedures Procedure Name Priority Date/Time Associated Diagnosis Comments PATHOLOGY TISSUE Routine 02/22/2025 8:16 AM CDT Diarrhea, unspecified type Melena Weight loss CT COLONOSCOPY, DIAGNOSTIC 02/22/2025 8:00 AM CDT Diarrhea, unspecified type Melena Weight loss Special Needs Message Received: Today Jacquie Mobley MD [facility] Schedulers - Endoscopy Pool Can we schedule with any provider EGD and colonoscopy at next opening? Jacquie Hadley Received Date Received Time February 14, 2025 4:[address] ED EGD FLEX TRANSORAL DX 02/22/2025 8:00 AM CDT Diarrhea, unspecified type Melena Weight loss Special Needs Message Received: Today Jacquie Mobley MD [facility] Schedulers - Endoscopy Pool Can we schedule with any provider EGD and colonoscopy at next opening? ThanksJacquie Received Date Received Time February 14, 2025 4:30 PM ENDOSCOPY, COLON, DIAGNOSTIC Routine 02/22/2025 7:43 AM CDT EGD Routine 02/22/2025 7:42 AM CDT from Last 3 Months Results * PATHOLOGY TISSUE (02/22/2025 8:16 AM CDT) Case Report Surgical Pathology Report Case: [id number] Authorizing Provider: Ramone Blandon MD Collected: 02/22/2025 08:16 AM Ordering Location: [facility] Received: 02/22/2025 09:46 AM Pathologist: Latricia Newman MD Specimens: A) - Duodenum, Duodenal biopsies r/o Celiac Disease B) - Gastric, Gastric Biopsies r/o H. Pylori C) - Esophagus, GEJ Biopsies r/o Webb's Esophagus D) - Colon, Terminal Ileum Biopsies r/o Ileitis E) - Colon, Random colon biopsies r/o microscopic colitis F) - Polyp Ascending, Ascending colon polyp x1 G) - Polyp Rectal, Rectal colon polyp x1 02/25/2025 11:28 AM CDT [facility] Final Diagnosis Small intestine, duodenum, biopsy (A): - No histopathologic abnormality - Intact villous and crypt architecture without increased intraepithelial lymphocytes Stomach, biopsy (B): - No histopathologic abnormality - No active inflammation or H. pylori organisms (H&E examination) Esophagus, GEJ, biopsy (C): - Squamocolumnar mucosa with mild inflammation and reactive changes - No intestinal metaplasia Small intestine, terminal ileum, biopsy (D): - No histopathologic abnormality Large intestine, random colon, biopsy (E): - No histopathologic abnormality - No lymphocytic or collagenous colitis Large intestine, ascending colon polyp x 1, biopsy (F): - Tubular adenoma Large intestine, rectal colon polyp x 1, biopsy (G): - Hyperplastic polyp 02/25/2025 11:28 AM T [facility] at 1128 CDT Microscopic Description and Comment Microscopic examination substantiates the final diagnosis. 02/25/2025 11:28 AM T [facility] Clinical History The patient is a 39-year-old man with epigastric abdominal pain chronic diarrhea, and weight loss. Operative procedure/findings: EGD - Z-line regular, 40 cm from the incisors, biopsied to rule out Webb's esophagus; medium food residue in the stomach, biopsied to rule out H. pylori; 5 mm subepithelial lesion in the duodenal bulb, otherwise normal duodenum, biopsied to rule out celiac disease. Colonoscopy - 4 mm ascending colon polyp and 6 mm rectal polyp, resected and retrieved; normal ileum, biopsied to rule out ileitis; otherwise normal entire examined colon, biopsied to rule out microscopic colitis 02/25/2025 11:28 AM T [facility] Gross Description The requisition and specimen(s) are identified with the patient's name Tigre Fink. Received in formalin, specimen A, consists of 5 yellow-santos tissue fragments, 0.1-0.3 cm and 0.7 x 0.3 x 0.2 cm in aggregate, submitted in toto in cassette A1. Received in formalin, specimen B, consists of 3 yellow-santos tissue fragments, 0.2-0.4 cm and 0.7 x 0.2 x 0.2 cm in aggregate, submitted in toto in cassette B1. Received in formalin, specimen C, consists of 3 santos-white tissue fragments, 0.2-0.3 cm and 0.7 x 0.3 x 0.2 cm in aggregate, submitted in toto in cassette C1. Received in formalin, specimen D, consists of 2 santos-white tissue fragments, each 0.3 x 0.2 x 0.1 cm, submitted in toto in cassette D1. Received in formalin, specimen E, consists of multiple santos-white tissue fragments, 0.1-0.5 cm and 0.7 x 0.3 x 0.2 cm in aggregate, submitted in toto in cassette E1. Received in formalin, specimen F, consists of a 0.4 x 0.3 x 0.1 cm santos-yellow tissue fragment admixed with digestive material, submitted in toto in cassette F1. Received in formalin, specimen G, consists of a 0.4 x 0.3 x 0.2 cm pink-santos tissue fragment, submitted in toto in cassette G1./MARISEL 02/25/2025 11:28 AM [facility] Pathologist Location at [facility] 02/25/2025 11:28 AM [facility] Disclaimer The performance characteristics of all immunohistochemical and indirect immunofluorescence stains (if any) cited in this report were determined by the [facility] of [facility]. Some of these tests were developed by our own laboratory and have not been cleared or approved by the US Food and Drug Administration. The FDA does not require this test to go through premarket FDA review. These tests are used for clinical purposes. They should not be regarded as investigational or for research. This laboratory is certified under the Clinical Laboratory Improvement Amendments (CLIA) as qualified to perform high complexity clinical laboratory testing. This case has been personally reviewed and interpreted by the attending (teaching) pathologist. 02/25/2025 11:28 AM [facility] Embedded Images 02/25/2025 11:28 AM [facility] Biopsy, NOS PART OF DUODENUM / Unknown 02/22/2025 8:16 AM CDT 02/22/2025 9:46 AM CDT Biopsy, NOS GASTRIC CONTENTS SPECIMEN / Unknown 02/22/2025 8:19 AM CDT 02/22/2025 9:46 AM CDT Biopsy, NOS REGION OF ESOPHAGUS / Unknown 02/22/2025 8:21 AM CDT 02/22/2025 9:46 AM CDT Biopsy, NOS COLON PART / Unknown 02/22/2025 8:32 AM CDT 02/22/2025 9:46 AM CDT Biopsy, NOS COLON PART / Unknown 02/22/2025 8:37 AM CDT 02/22/2025 9:46 AM CDT Biopsy, NOS POLYP / Unknown 02/22/2025 8 :42 AM CDT 02/22/2025 9:46 AM CDT Biopsy, NOS RECTAL POLYP / Unknown 02/22/2025 8:52 AM CDT 02/22/2025 9:46 AM CDT us Ramone Blandon MD LAB - PATHOLOGY/CYTOLOGY ORDER BIJAL Final Result Performing Organization Address City/State/[facility] Phone Number [facility] [address] [phone] * ENDOSCOPY, COLON, DIAGNOSTIC (02/22/2025 7:43 AM CDT) Report Endoscopy POC Endoscopy Department Report _ Patient Name: Tigre Fink Procedure Date: 02/22/2025 7:43 AM Date of : 1985 Classification: Outpatient Gender: Male Ethnicity: Not or Race: Black or _ Providers: Ramone Blandon MD Referring MD: Ashley Hallman (Referring MD) Procedure: Colonoscopy Indications: Chronic diarrhea, weight loss, abdominal pain Medications: Monitored Anesthesia Care Patient Profile: This is a 39 year old male. Description of Procedure: Pre-Anesthesia Assessment: - Prior to the procedure, a History and Physical was performed, and patient medications and allergies were reviewed. The patient's tolerance of previous anesthesia was also reviewed. The risks and benefits of the procedure and the sedation options and risks were discussed with the patient. All questions were answered, and informed consent was obtained. Prior Anticoagulants: The patient has taken no anticoagulant or antiplatelet agents. ASA Grade Assessment: I - A normal, healthy patient. After reviewing the risks and benefits, the patient was deemed in satisfactory condition to undergo the procedure. After I obtained informed consent, the scope was passed under direct vision. Throughout the procedure, the patient's blood pressure, pulse, and oxygen saturations were monitored continuously. The CF-[id number] was introduced through the anus and advanced to the terminal ileum. The colonoscopy was performed without difficulty. The patient tolerated the procedure well. The quality of the bowel preparation was fair. Anatomical landmarks were photographed. Findings: A 4 mm polyp was found in the ascending colon. The polyp was sessile. The polyp was removed with a cold snare. Resection and retrieval were complete. A 6 mm polyp was found in the rectum. The polyp was sessile. The polyp was removed with a cold snare. Resection and retrieval were complete. Non-bleeding external and internal hemorrhoids were found during retroflexion. The hemorrhoids were medium-sized. A single diverticulum was found in the ascending colon. The terminal ileum appeared normal. Biopsies were taken with a cold forceps for histology. The colon (entire examined portion) appeared normal. Biopsies for histology were taken with a cold forceps from the entire colon for evaluation of microscopic colitis. Estimated Blood Loss: Estimated blood loss: none. Complications: No immediate complications. Impression: - Preparation of the colon was fair. - One 4 mm polyp in the ascending colon, removed with a cold snare. Resected and retrieved. - One 6 mm polyp in the rectum, removed with a cold snare. Resected and retrieved. - Non-bleeding external and internal hemorrhoids. - Diverticulosis in the ascending colon. - The examined portion of the ileum was normal. Biopsied. - The entire examined colon is normal. Biopsied. Recommendation: - Await pathology results. - Repeat colonoscopy in 3 years since the prep was fair. - Resume previous diet. - Continue present medications. - Return to GI clinic as previously scheduled. Procedure Code(s): --- Professional --- 27075, Colonoscopy, flexible; with removal of tumor(s), polyp(s), or other lesion(s) by snare technique 22830, 59, Colonoscopy, flexible; with biopsy, single or multiple Diagnosis Code(s): --- Professional --- K64.8, Other hemorrhoids D12.2, Benign neoplasm of ascending colon D12.8, Benign neoplasm of rectum K52.9, Noninfective gastroenteritis and colitis, unspecified K57.30, Diverticulosis of large intestine without perforation or abscess without bleeding CPT copyright 2021 [employer]. All rights reserved. The codes documented in this report are preliminary and upon nuclear equipment sales engineer review may be revised to meet current compliance requirements. Ramone Blandon MD 02/22/2025 9:14:56 AM Note Initiated On: 02/22/2025 7:43 AM Number of Addenda: [address] [employer]OV[place] 02/22/2025 7:43 AM CDT Ramone Blandon MD GI PROCEDURE ORDERABLES Edited Result - Final [facility] * EGD (02/22/2025 7:42 AM CDT) Report Endoscopy POC Endoscopy Department Report _ Patient Name: Tigre Fink Procedure Date: 02/22/2025 7:42 AM Date of : 1985 Classification: Outpatient Gender: Male Ethnicity: Not or Race: Black or _ Providers: Ramone Blandon MD Referring MD: Ashley Hallman (Referring MD) Procedure: Upper GI endoscopy Indications: Epigastric abdominal pain Medications: Monitored Anesthesia Care Patient Profile: This is a 39 year old male. Description of Procedure: Pre-Anesthesia Assessment: - Prior to the procedure, a History and Physical was performed, and patient medications and allergies were reviewed. The patient's tolerance of previous anesthesia was also reviewed. The risks and benefits of the procedure and the sedation options and risks were discussed with the patient. All questions were answered, and informed consent was obtained. Prior Anticoagulants: The patient has taken no anticoagulant or antiplatelet agents. ASA Grade Assessment: I - A normal, healthy patient. After reviewing the risks and benefits, the patient was deemed in satisfactory condition to undergo the procedure. After obtaining informed consent, the endoscope was passed under direct vision. Throughout the procedure, the patient's blood pressure, pulse, and oxygen saturations were monitored continuously. The was introduced through the mouth, and advanced to the second part of duodenum. The upper GI endoscopy was accomplished without difficulty. The patient tolerated the procedure well. Findings: The Z-line was regular and was found 40 cm from the incisors. Biopsies were taken with a cold forceps for histology. Esophagogastric landmarks were identified: the Z-line was found at 40 cm and the site of hiatal narrowing was found at 44 cm from the incisors. A 4 cm hiatal hernia was present. A medium amount of food (residue) was found in the gastric body. Biopsies were taken with a cold forceps for histology. Localized 5 mm subepithelial lesion was found in the duodenal bulb. The overlying mucosa appeared normal. The rest of the duodenum was normal and biopsied. Estimated Blood Loss: Estimated blood loss was minimal. Complications: No immediate complications. Impression: - Z-line regular, 40 cm from the incisors. Biopsied. - Esophagogastric landmarks identified. - 4 cm hiatal hernia. - A medium amount of food (residue) in the stomach. Biopsied. - Small 5 mm subepithelial lesion in the duodenal bulb. - Normal duodenum otherwise. Biopsied. Recommendation: - Await pathology results. - Refer to advanced endoscopist for EUS of the duodenal bulb FLORENTINO; keep on clear liquid diet for 24 hours prior to the procedure with re-examining the stomach. - Patient needs GES after stopping Cannabis and opioids. Procedure Code(s): --- Professional --- 70634, Esophagogastroduod enoscopy, flexible, transoral; with biopsy, single or multiple Diagnosis Code(s): --- Professional --- K44.9, Diaphragmatic hernia without obstruction or gangrene K31.89, Other diseases of stomach and duodenum R10.13, Epigastric pain CPT copyright 2021 [employer]. All rights reserved. The codes documented in this report are preliminary and upon nuclear equipment sales engineer review may be revised to meet current compliance requirements. Ramone Blandon MD 02/22/2025 9:08:12 AM Note Initiated On: 02/22/2025 7:42 AM Number of Addenda: [id number] [place] [address] [employer] 02/22/2025 7:42 AM CDT Ramone Blandon MD GI PROCEDURE ORDERABLES Edited Result - Final [facility] from Last [address] [facility] Care Teams Front Desk Team Member Relationship Specialty Start Date End Date Unknown, Provider PCP - General 02/14/25
--- OUTSIDE RECORDS SUMMARY | 2025-05-14 22:01 | XMS_ITS | Clinical Summary ---
Author Organization [facility] Address [address] [place] [address] Care Team Providers Care Sound Printer Name Role Phone Roger Levin APRN, HEAD OF DRAMA Primary Care Pr ovider Ashley Hallman APRN, HEAD OF DRAMA Unavailable Allergies No known active allergies Medications [...] naloxone HCl (Narcan) 4 MG/0.1ML Liquid 1 [place] by Nasal route as needed for Opioid [...] - 1st line. 10 Tablet 5 Active omeprazole (PriLOSEC) 40 MG CAPSULE DELAYED RELEASEIndicatio ns:Gastroesophag eal reflux disease, unspecified whether esophagitis present Take 1 Capsule by mouth daily. 90 Capsule 1 5 Active Active Problems Problem Noted Date Diagnosed Date GERD (gastroesophageal reflux disease) 2 Anxiety 05/14/2022 Intractable abdominal pain 05/13/2022 Encounters Date Type Department Care Team Description 04/25/2025 Refill [facility] Gastroenterology [facility] [address] [place] [address] Ashlye Hallman APRN, HEAD OF DRAMA Medication Refill 04/24/2025 [facility] [place] [address] Ashley Hallman APRN, HEAD OF DRAMA Medication Refill from Last 3 Months Immunizations Immunization Administration [...] 10:37 AM CDT Height 180.3 cm (5' 11) 02/05/2025 10:37 AM CDT Body Mass Index 21.95 02/05/2025 10:37 AM CDT Plan of Treatment Health Maintenance Due Date Last Done Comments DTaP/Tdap/Td Immunization (5 - Tdap) 06/29/2000 06/28/2000, 12/13/1991, 01/02/1991, Additional history exists Hepatitis B Immunization (2 of 3 - 3-dose series) 07/26/2000 06/28/2000 Human Papillomavirus (HPV) Immunization (1 - 3-dose SCDM series) 2012 SARS-COV-2 Immunization ( season) 2024 Influenza Immunization (#1) 2025 Respiratory Syncytial Virus (RSV) Immunization (Adult) [...] on patient's age to complete this topic Insurance [employer] on file [facility] Advance Directives * Full Code (Latest Code Status on File) Date Activated Date Inactivated Comments 05/13/2022 11:42 PM 05/14/2022 9:30 PM CPR-Full Lenora tment: FULL ARREST: Attempt Resuscitation/CPR wit intubation and mechanical ventilation. PRE-ARREST: Use entire range of life support measures to stabilize the patient. Care Teams Sound Printer Relationship Specialty Start Date End Date Roger Levin APRN, HEAD OF DRAMA [address] [address] PCP - General Advanced Practice Nurse 06/07/23 Ashley Hallman APRN, HEAD OF DRAMA [address] [place] [address] Nurse Practitioner Advanced Practice Nurse 02/04/25
--- NOTE | 2025-05-14 22:18 | ED.ABDPAIN ---
HPI - Abdominal Pain General Chief Complaint: Abdominal Pain <Michael Griffith MD - Last Filed: 05/16/25 07:15> Stated Complaint: vomiting <Michael Griffith MD - Last Filed: 05/16/25 07:15> Time Seen by Provider: 05/14/25 22:17 <Michael Griffith MD - Last Filed: 05/16/25 07:15> Source: patient and family <Michael Griffith MD - Last Filed: 05/16/25 07:15> Mode of arrival: ambulatory <Michael Griffith MD - Last Filed: 05/16/25 07:15> Limitations: no limitations <Michael Griffith MD - Last Filed: 05/16/25 07:15> History of Present Illness HPI narrative: 39 YEARS OLD MALE CAME TO THE ED BY PRIVATE CAR COMPLAINING OF SEVERE PAIN OF THE ABDOMEN MAINLY LEFT SIDE STARTED 5 DAYS AGO, TODAY DEVELOPED NAUSEA AND FREQUENT VOMITING. PATIENT IS RESTLESS, UNABLE TO SIT STILL. PATIENT REPORT HISTORY OF CROHN DISEASE <Michael Griffith MD - Last Filed: 05/16/25 07:15> Related Data Allergies/Adverse Reactions: Allergies Allergy/AdvReac Type Severity Reaction Status Date / Time No Known Allergies Allergy Verified 05/14/25 22:12 <Michael Griffith MD - Last Filed: 05/16/25 07:15> Review of Systems Review of Systems: All systems reviewed & are unremarkable except as noted in HPI and below <Michael Griffith MD - Last Filed: 05/16/25 07:15> PMFSH Past Medical History Medical History: Medical History Normal colonoscopy Peptic ulcer disease IBS (irritable bowel syndrome) <Michael Griffith MD - Last Filed: 05/16/25 07:15> Exam Narrative: GENERAL APPEARANCE: WELL-DEVELOPED, WELL-NOURISHED, RESTLESS UNABLE TO SIT STILL SKIN: NORMAL COLOR HEAD: NORMOCEPHALIC, NONTRAUMATIC EYES: CLEAR CONJUNCTIVA ENT: OROPHARYNX NORMAL, EARS NORMAL, NOSE NORMAL NECK: SUPPLE, NONTENDER CHEST AND RESPIRATORY: AIRWAY PATENT, NO RESPIRATORY DISTRESS, NO ACCESSORY MUSCLE USE HEART: REGULAR RATE/RHYTHM ABDOMEN: SOFT, SEVERE DIFFUSE TENDERNESS MAINLY LEFT LOWER QUADRANT, NO ORGANOMEGALY, QUIET BOWEL SOUNDS VASCULAR: NORMAL PERIPHERAL PULSES, NORMAL CAPILLARY REFILL. MUSCULOSKELETAL: NORMAL RANGE OF MOTION, NONTENDER BACK NEUROLOGIC: ALERT AND ORIENTED ?3, HEALTH INFORMATION DIRECTOR IS NORMAL TESTED, NO GROSS MOTOR DEFICIT <Michael Griffith MD - Last Filed: 05/16/25 07:15> Course Course Emergency Course: 39-year-old male presented with vomiting and abdominal pain. The patient was noted to be afebrile. Blood work revealed a white count of 15.4. The patient was noted to have a lactic acid of 1.3. Patient had EGD and colonoscopy at [facility]. The patient states that he was diagnosed with Crohn's disease. Current CT revealed thickening of the colon. The patient received steroids, Levaquin and Flagyl. The patient has been accepted by [facility]. We are waiting for a bed. The patient does not want to stay here any longer. He wants to go to [facility] on his own. Colitis/Crohn's I declare that I personally explained to the patient the risks and consequences involved in leaving this facility at this time, the benefits of continued treatment and or hospitalization and alternatives if any to continue treatment and hospitalization. If applicable I have not identified any psychosis, drugs, mental illness or medical illness that alters decision-making capacity. <Charli Dawson MD - Last Filed: 05/15/25 11:04> Consultations Consultation #1: DR STRANGE, HOSPITALIST AT [facility] WHO ACCEPTED PATIENT TRANSFER RECOMMENDS TO GET C DIFF AND LACTIC ACID PRIOR TO TRANSFER. PATIENT HAVE NO DIARRHEA <Michael Griffith MD - Last Filed: 05/16/25 07:15> Vital Signs Vital signs: Vital Signs Temperature 37.0 C 05/14/25 22:00 Pulse Rate 77 05/14/25 22:00 Respiratory Rate 24 H 05/14/25 22:00 Blood Pressure 180/110 H 05/14/25 22:00 Pulse Oximetry 100 05/14/25 22:00 Oxygen Delivery Room Air 05/14/25 22:00 Temperature 36.9 C 05/15/25 08:45 Pulse Rate 84 05/15/25 08:45 Respiratory Rate 20 05/15/25 08:45 Blood Pressure 130/74 05/15/25 08:45 Pulse Oximetry 97 05/15/25 08:45 Oxygen Delivery Room Air 05/15/25 08:45 <Michael Griffith MD - Last Filed: 05/16/25 07:15> Vital Signs Temperature 37.0 C 05/14/25 22:00 Pulse Rate 77 05/14/25 22:00 Respiratory Rate 24 H 05/14/25 22:00 Blood Pressure 180/110 H 05/14/25 22:00 Pulse Oximetry 100 05/14/25 22:00 Oxygen Delivery Room Air 05/14/25 22:00 Temperature 36.9 C 05/15/25 08:45 Pulse Rate 84 05/15/25 08:45 Respiratory Rate 20 05/15/25 08:45 Blood Pressure 130/74 05/15/25 08:45 Pulse Oximetry 97 05/15/25 08:45 Oxygen Delivery Room Air 05/15/25 08:45 <Charli Dawson MD - Last Filed: 05/15/25 11:04> MDM - Abdominal Pain MDM Narrative Medical decision making narrative: PATIENT CAME WITH ABDOMINAL PAIN VITAL SIGNS SHOWING BLOOD PRESSURE 180/110, RESPIRATORY RATE 24 OTHERWISE WITHIN NORMAL LIMIT PHYSICAL EXAMINATION SHOWING DIFFUSE ABDOMINAL PAIN MAINLY LEFT LOWER QUADRANT, RESTLESS PATIENT DIFFERENTIAL DIAGNOSIS INCLUDE KIDNEY STONE, URINARY TRACT INFECTION, DIVERTICULITIS, COLITIS,CONSTIPATION BLOOD WORKUP INCLUDES CBC, CMP, LIPASE, LACTIC ACID SHOWED WBC 15.4, CALCIUM 10.9, OTHERWISE WITHIN NORMAL LIMIT CT ABDOMEN AND PELVIS WITH IV CONTRAST SHOWED FINDING CONSISTENT WITH COLITIS CROHN'S FLARE IS MY CONCERN. PATIENT STARTED ON LEVAQUIN, FLAGYL AND PREDNISONE, TRANSFERRED TO [facility], ACCEPTED BY Patient care turned over to calming physician at shift change, awaiting disposition. Patient been resting quietly in the emergency room without any issues or problems. <Michael Griffith MD - Last Filed: 05/16/25 07:15> Differential Diagnosis Differential diagnosis: Likely abdominal pain, calculus of kidney, constipation, diverticulitis and pancreatitis <Michael Griffith MD - Last Filed: 05/16/25 07:15> Medical Records Attestation: I reviewed the patient's medical records. <Michael Griffith MD - Last Filed: 05/16/25 07:15> Lab Data Attestation: I reviewed the patient's lab results. <Michael Griffith MD - Last Filed: 05/16/25 07:15> Result diagrams: 05/14/25 22:15 05/14/25 22:15 <Michael Griffith MD - Last Filed: 05/16/25 07:15> Labs: Lab Results 05/14/25 05/14/25 05/15/25 Range/Units 22:15 22:18 01:34 WBC 15.4 H (4.8-10.8) K/mm3 RBC 4.45 L (4.70-6.10) M/mm3 Hgb 13.8 L (14.0-18.0) g/dL Hct 39.6 L (40.0-54.0) % MCV 89.0 (78.0-102.0) fL MCH 31.0 (27.0-31.0) pg MCHC 34.8 (32-36) g/dL RDW 12.7 (11.6-14.4) % Plt Count 318 (150-420) K/mm3 MPV 10.7 (8.7-11.0) fl Immature Gran % (Auto) 0.8 H (0.0-0.0) % Neut % (Auto) 71.8 H (50.0-70.0) % Lymph % (Auto) 17.3 L (18.0-42.0) % Antelope % (Auto) 9.9 (2.0-11.0) % Eos % (Auto) 0.1 L (1.0-6.0) % Baso % (Auto) 0.1 (0.0-1.0) % Lymph # (Auto) 2.66 (1.10-4.50) K/mm3 Antelope # (Auto) 1.53 H (0.10-0.90) K/mm3 Eos # (Auto) 0.01 L (0.02-0.50) K/mm3 Baso # (Auto) 0.02 (0.00-0.10) K/mm3 Abs Immat Gran (auto) 0.12 H (0.00-0.00) K/mm3 Absolute Neuts (auto) 11.07 H (1.70-7.20) K/mm3 Absolute Nucleated RBC 0.00 (0.00-0.00) K/mm3 Nucleated RBC % 0.0 (0-0.0) % Sodium 145 (137-145) mmol/L Potassium 3.5 (3.4-5.0) mmol/L Chloride 111 H (98-107) mmol/L Carbon Dioxide 24 (22-30) mmol/L Anion Gap 10 (4-12) mmol/L BUN 8 L D (9-20) mg/dL Creatinine 1.01 (0.7-1.3) mg/dL Estim Creat Clear Calc 90 ml/min Estimated GFR > 60 (59 - ) Glucose 143 H (65-110) mg/dL Calculated Osmolality 300 H (285-295) mOsm/kg Lactic Acid 1.3 (0.4-2.0) mmol/L Calcium 10.9 H (8.4-10.2) mg/dL Total Bilirubin 0.8 (0.2-1.3) mg/dL AST 25 (17-59) U/L ALT 22 (6-50) U/L Alkaline Phosphatase 65 (38-126) U/L Total Protein 8.6 H (6.3-8.2) g/dL Albumin 5.3 H (3.5-5.1) g/dL Lipase 124 (23-300) U/L Urine Color Yellow (Yellow) Urine Appearance Clear (Clear) Urine pH 6.0 (5.0-8.0) Ur Specific [place]per[place] 1.010 (1.010-1.020) Urine Protein 1+ H (Negative) Urine Glucose (UA) Negative (Negative) Urine Ketones Negative (Negative) Ur Blood (Man) 1+ H (Negative) Urine Nitrate Negative (Negative) Urine Bilirubin Negative (Negative) Urine Urobilinogen 0.2 (0.2-1.0) mg/dL Leukocyte Esterase Rfl Negative (Negative) JERI/UL Urine RBC 0-2 (0-2) /hpf Urine WBC 0-3 (0-3) /hpf Ur Squamous Epith Cells Rare (Few) /hpf Urine Bacteria Trace (None) /hpf <Michael Griffith MD - Last Filed: 05/16/25 07:15> Lab Results 05/14/25 05/14/25 05/15/25 Range/Units 22:15 22:18 01:34 WBC 15.4 H (4.8-10.8) K/mm3 RBC 4.45 L (4.70-6.10) M/mm3 Hgb 13.8 L (14.0-18.0) g/dL Hct 39.6 L (40.0-54.0) % MCV 89.0 (78.0-102.0) fL MCH 31.0 (27.0-31.0) pg MCHC 34.8 (32-36) g/dL RDW 12.7 (11.6-14.4) % Plt Count 318 (150-420) K/mm3 MPV 10.7 (8.7-11.0) fl Immature Gran % (Auto) 0.8 H (0.0-0.0) % Neut % (Auto) 71.8 H (50.0-70.0) % Lymph % (Auto) 17.3 L (18.0-42.0) % Antelope % (Auto) 9.9 (2.0-11.0) % Eos % (Auto) 0.1 L (1.0-6.0) % Baso % (Auto) 0.1 (0.0-1.0) % Lymph # (Auto) 2.66 (1.10-4.50) K/mm3 Antelope # (Auto) 1.53 H (0.10-0.90) K/mm3 Eos # (Auto) 0.01 L (0.02-0.50) K/mm3 Baso # (Auto) 0.02 (0.00-0.10) K/mm3 Abs Immat Gran (auto) 0.12 H (0.00-0.00) K/mm3 Absolute Neuts (auto) 11.07 H (1.70-7.20) K/mm3 Absolute Nucleated RBC 0.00 (0.00-0.00) K/mm3 Nucleated RBC % 0.0 (0-0.0) % Sodium 145 (137-145) mmol/L Potassium 3.5 (3.4-5.0) mmol/L Chloride 111 H (98-107) mmol/L Carbon Dioxide 24 (22-30) mmol/L Anion Gap 10 (4-12) mmol/L BUN 8 L D (9-20) mg/dL Creatinine 1.01 (0.7-1.3) mg/dL Estim Creat Clear Calc 90 ml/min Estimated GFR > 60 (59 - ) Glucose 143 H (65-110) mg/dL Calculated Osmolality 300 H (285-295) mOsm/kg Lactic Acid 1.3 (0.4-2.0) mmol/L Calcium 10.9 H (8.4-10.2) mg/dL Total Bilirubin 0.8 (0.2-1.3) mg/dL AST 25 (17-59) U/L ALT 22 (6-50) U/L Alkaline Phosphatase 65 (38-126) U/L Total Protein 8.6 H (6.3-8.2) g/dL Albumin 5.3 H (3.5-5.1) g/dL Lipase 124 (23-300) U/L Urine Color Yellow (Yellow) Urine Appearance Clear (Clear) Urine pH 6.0 (5.0-8.0) Ur Specific [place]ity 1.010 (1.010-1.020) Urine Protein 1+ H (Negative) Urine Glucose (UA) Negative (Negative) Urine Ketones Negative (Negative) Ur Blood (Man) 1+ H (Negative) Urine Nitrate Negative (Negative) Urine Bilirubin Negative (Negative) Urine Urobilinogen 0.2 (0.2-1.0) mg/dL Leukocyte Esterase Rfl Negative (Negative) JERI/UL Urine RBC 0-2 (0-2) /hpf Urine WBC 0-3 (0-3) /hpf Ur Squamous Epith Cells Rare (Few) /hpf Urine Bacteria Trace (None) /hpf <Charli Dawson MD - Last Filed: 05/15/25 11:04> Imaging Data Radiologist's impression: ITS Impressions Abdomen/Pelvis CT 05/14/25 23:15 IMPRESSION: Redemonstration of edematous mural thickening within the colon extending from the transverse colon to the rectum for which a diffuse colitis is suspected. <Michael Griffith MD - Last Filed: 05/16/25 07:15> ITS Impressions Abdomen/Pelvis CT 05/14/25 23:15 IMPRESSION: Redemonstration of edematous mural thickening within the colon extending from the transverse colon to the rectum for which a diffuse colitis is suspected. <Charli Dawson MD - Last Filed: 05/15/25 11:04> Critical Care Time Critical Care Time Critical Care Time: Yes <Michael Griffith MD - Last Filed: 05/16/25 07:15> Total Critical Care Time: 30 <Michael Griffith MD - Last Filed: 05/16/25 07:15> Discharge Plan Discharge Clinical Impression: Colitis <Michael Griffith MD - Last Filed: 05/16/25 07:15> Patient Disposition: Left Against Medical Advice <Michael Griffith MD - Last Filed: 05/16/25 07:15> Condition: Guarded Prognosis <Michael Griffith MD - Last Filed: 05/16/25 07:15> Additional Instructions: <Michael Griffith MD - Last Filed: 05/16/25 07:15> Patient Language: Mohawk <Michael Griffith MD - Last Filed: 05/16/25 07:15> Prescriptions: No Action methylprednisolone [Medrol (Steven)] 4 mg tablets,dose pack See Rx Instructions .ROUTE .COMPLEX Qty: 21 0RF Rx Instructions: orally per package directions ciprofloxacin HCl [Cipro] 500 mg tablet 500 mg PO BID 7 Days Qty: 14 0RF metronidazole 500 mg tablet 500 mg PO TID 7 Days Qty: 21 0RF prochlorperazine maleate [Compazine] 10 mg tablet 10 mg PO Q8H PRN (Reason: nausea and vomiting) Qty: 20 0RF hydrocodone-acetaminophen 5-325 mg tablet 1 tablet PO Q8H PRN (Reason: pain) Qty: 20 0RF Rx Instructions: 1-2 tabs per dose prochlorperazine maleate [Compazine] 10 mg tablet 10 mg PO Q8H MDD 4 PRN (Reason: nausea and vomiting) Qty: 14 0RF dicyclomine 10 mg capsule 10 mg PO TID PRN (Reason: abdominal pain) Qty: 60 0RF ondansetron HCl 4 mg tablet 4 mg PO Q8H PRN (Reason: nausea and vomiting) 4 Days Qty: 14 0RF amoxicillin-pot clavulanate 875-125 mg tablet 1 tablet PO Q12H Qty: 14 0RF <Michael Griffith MD - Last Filed: 05/16/25 07:15> Follow-up/Referrals: UNKNOWN,DOCTOR [Primary Care Provider] - <Michael Griffith MD - Last Filed: 05/16/25 07:15> Time of Disposition: 07:41 <Michael Griffith MD - Last Filed: 05/16/25 07:15> 07:41 <Charli Dawson MD - Last Filed: 05/15/25 11:04>
[2025-05-14] MEDS: SODIUM CHLORIDE 0.9% IV 1,000 ML 999 ML IV CONT (22:28)
[2025-05-14] MEDS: ONDANSETRON INJ 4 MG/2 ML VIAL IV PUSH ×2 (22:29)
[2025-05-14] MEDS: HYDROmorphone HCL INJ (*CRX) 2 MG/ML VIAL 0.5 MG IV PUSH ×2 (22:29→23:46)
[2025-05-14 22:42] LABS: Alanine Aminotransferase 22 U/L (6-50); Albumin Level 5.3 g/dL (3.5-5.1); Alkaline Phosphatase 65 U/L (38-126); Anion Gap 10 mmol/L (4-12); Aspartate Amino Transferase 25 U/L (17-59); Bilirubin,Total 0.8 mg/dL (0.2-1.3); Blood Urea Nitrogen 8 mg/dL (9-20); Calcium 10.9 mg/dL (8.4-10.2); Carbon Dioxide 24 mmol/L (22-30); Chloride 111 mmol/L (98-107); Estimated CRCL calculation 90 ml/min; Estimated Glomerular Filt Rate > 60; Glucose 143 mg/dL (65-110); Lipase 124 U/L (23-300); Osmolality Calculated 300 mOsm/kg (285-295); Potassium 3.5 mmol/L (3.4-5.0); Sodium 145 mmol/L (137-145); Total Protein 8.6 g/dL (6.3-8.2)
[2025-05-14 22:55] LABS: Hematocrit 39.6 % (40.0-54.0); Hemoglobin 13.8 g/dL (14.0-18.0); Immature Granulocyte Percent A 0.8 % (0.0-0.0); Lymphocytes Absolute Auto 2.66 K/mm3 (1.10-4.50); Mean Corpuscular HGB Conc 34.8 g/dL (32-36); Mean Corpuscular Hemoglobin 31.0 pg (27.0-31.0); Mean Corpuscular Volume 89.0 fL (78.0-102.0); Nucleated Red Blood Cells Absolute Auto 0.00 K/mm3 (0.00-0.00); Nucleated Red Blood Cells Perc 0.0 % (0-0.0); Platelet Count Result 318 K/mm3 (150-420); Red Blood Count 4.45 M/mm3 (4.70-6.10); White Blood Count 15.4 K/mm3 (4.8-10.8)
--- OUTSIDE RECORDS SUMMARY | 2025-05-14 22:55 | XMS_ITS | Clinical Summary ---
Author Organization [facility] Address [address] [place] [address] Care Team Providers Care Ward Clerk Name Role Phone Roger Levin APRN, PROJECT ASSISTANT Primary Care Pr ovider Ashley Hallman APRN, PROJECT ASSISTANT Unavailable Allergies No known active allergies Medications [...] naloxone HCl (Narcan) 4 MG/0.1ML Liquid 1 [place] by Nasal route as needed for Opioid [...] Department Care Team Description 04/25/2025 Refill [facility] [address] [place] [address] Ashley Hallman APRN, PROJECT ASSISTANT Medication Refill 04/24/2025 [facility] [place] [address] Ashley Hallman APRN, PROJECT ASSISTANT Medication Refill from Last 3 Months Immunizations [...] topic Insurance [employer] on file [facility] Advance Directives * Full Code (Latest Code Status on File) Date Activated Date Inactivated Comments 05/13/2022 11:42 PM 05/14/2022 9:30 PM CPR-Full Lenora tment: FULL ARREST: Attempt Resuscitation/CPR wit intubation and mechanical ventilation. PRE-ARREST: Use entire range of life support measures to stabilize the patient. Care Teams Ward Clerk Relationship Specialty Start Date End Date Roger Levin APRN, PROJECT ASSISTANT [address] [address] PCP - General Advanced Practice Nurse 06/07/23 Ashley Hallman APRN, PROJECT ASSISTANT [address] [place] [address] Nurse Practitioner Advanced Practice Nurse 02/04/25
--- OUTSIDE RECORDS SUMMARY | 2025-05-14 22:55 | XMS_ITS | Clinical Summary ---
Author Organization [facility] Address [address] [place] [address] Care Team Providers Care Aircraft Engine Mechanic Name Role Phone Unknown, Provider Primary Care Provider Unavaila ble Source Comments [facility],non-owned Affiliates and Associated Physician Practices is amultiple site organization consisting of ambulatory clinics and hospital sitesin [place], [place], [place] and [place]. This disclosure is being madepursuant to the Care Everywhere program and may not contain all information available regarding this patient. Last updated 18.[facility] Allergies Active Allergy Reactions Criticality Noted Date [...] hours as needed 02/05/2025 Active HYDROcodone-sonya taminophen (Kila) 5-325 MG tablet Take 1 (one) tablet to 2 (two) tablets by mouth every 4 hours as needed 01/28/2025 Active naloxone HCl (Narcan) 4 MG/0.1ML nasal spray [place] 1 (one) spray into the nose as [...] Description 02/22/2025 8:06 AM CDT Anesthesia Event [facility] [address] [place] [address] Yohannes Tellez MD Dobbs, Veronica Mena, PROFILE TRIMMER-PERSONAL CARE AID 02/22/2025 7:55 AM CDT - 02/22/2025 8:45 AM CDT Surgery [facility] [address] [place] [phone] Ramone Blandon MD EGD w/ nicole 02/22/2025 6:57 AM CDT - 02/22/2025 10:43 AM CDT Hospital Encounter [facility] [place] [address] [place] [phone] Ramone Blandon MD Surgery General Discharge Disposition: Home or Self Care 02/22/2025 Travel 02/15/2025 Patient Outreach [facility] [address] [place] [address] Salome Richard RN 02/14/2025 3:30 PM CDT Office Visit [facility] [address] [place] [address] Ramone Blandon MD Diarrhea, unspecified type (Primary Dx); Melena; Loss of weight; Epigastric pain 02/14/2025 Orders Only [facility] [address] [place] [address] Salome Richard RN 02/14/2025 Travel 02/11/2025 Travel [...] CDT Diarrhea, unspecified type Melena Weight loss [place] COLONOSCOPY, DIAGNOSTIC 02/22/2025 8:00 AM CDT Diarrhea, unspecified type Melena Weight loss Special Needs Message Received: Today Jacquie Mobley MD [facility] Schedulers - Endoscopy Pool Can we schedule with any provider EGD and colonoscopy at next opening? Jacquie Hadley Received Date Received Time February 14, 2025 4:30 PM [place] ED EGD FLEX TRANSORAL DX 02/22/2025 8:00 AM CDT Diarrhea, unspecified type Melena Weight loss Special Needs Message Received: Today Jacquie Mobley MD [facility] Schedulers - Endoscopy Pool Can we schedule with any provider EGD and colonoscopy at next opening? ThanksJacquie Received Date Received Time February 14, 2025 4:30 PM ENDOSCOPY, COLON, DIAGNOSTIC Routine 02/22/2025 7:43 AM CDT EGD Routine 02/22/2025 7:42 AM CDT from Last 3 Months Results * PATHOLOGY TISSUE (02/22/2025 8:16 AM CDT) Case Report Surgical Pathology Report Case: [id number] Authorizing Provider: Ramone Blandon MD Collected: 02/22/2025 08:16 AM Ordering Location: [facility] Received: 02/22/2025 09:46 AM Pathologist: Latricia [...] - Hyperplastic polyp 02/25/2025 11:28 AM T [facility] at 1128 CDT Microscopic Description and Comment Microscopic examination substantiates the final diagnosis. 02/25/2025 11:28 AM T [facility] Clinical History The patient is [...] out microscopic colitis 02/25/2025 11:28 AM T [facility] Gross Description The requisition and [...] toto in cassette G1./MARISEL 02/25/2025 11:28 AM [facility] Pathologist Location at [facility] 02/25/2025 11:28 AM [facility] Disclaimer The performance characteristics of all immunohistochemical and indirect immunofluorescence stains (if any) cited in this report were determined by the Histopathology Laboratory of [facility]. Some of these tests were developed by [...] the attending (teaching) pathologist. 02/25/2025 11:28 AM [facility] Embedded Images 02/25/2025 11:28 AM [facility] Biopsy, NOS PART OF DUODENUM [...] ORDER BIJAL Final Result Performing Organization Address City/State/[facility] Phone Number [facility] [phone] * ENDOSCOPY, COLON, DIAGNOSTIC (02/22/2025 7:43 AM [...] and oxygen saturations were monitored continuously. The [id number] was introduced through the anus and advanced [...] previously scheduled. Procedure Code(s): --- Professional --- 62907, Colonoscopy, flexible; with removal of tumor(s), polyp(s), or other lesion(s) by snare technique 71043, 59, Colonoscopy, flexible; with biopsy, single or multiple Diagnosis Code(s): --- Professional --- K64.8, Other hemorrhoids D12.2, Benign neoplasm of ascending colon D12.8, Benign neoplasm of rectum K52.9, Noninfective gastroenteritis and colitis, unspecified K57.30, Diverticulosis of large intestine without perforation or abscess without bleeding CPT copyright 2021 [employer]. All rights reserved. The codes documented in this report are preliminary and upon picking tech review may be revised to meet current compliance requirements. Ramone Blandon MD 02/22/2025 9:14:56 AM Note Initiated On: 02/22/2025 7:43 AM Number of Addenda: [address] [employer]OVATION 02/22/2025 7:43 AM CDT Ramone Blandon MD GI PROCEDURE ORDERABLES Edited Result - Final [facility] * EGD (02/22/2025 7:42 AM CDT) [...] and opioids. Procedure Code(s): --- Professional --- 66165, Esophagogastroduod enoscopy, flexible, transoral; with biopsy, single or multiple Diagnosis Code(s): --- Professional --- K44.9, Diaphragmatic hernia without obstruction or gangrene K31.89, Other diseases of stomach and duodenum R10.13, Epigastric pain CPT copyright 2021 [employer]. All rights reserved. The codes documented in this report are preliminary and upon picking tech review may be revised to meet current compliance requirements. Ramone Blandon MD 02/22/2025 9:08:12 AM Note Initiated On: 02/22/2025 7:42 AM Number of Addenda: [id number] [place] [address] [employer]OVATION 02/22/2025 7:42 AM CDT Ramone Blandon MD GI PROCEDURE ORDERABLES Edited Result - Final [facility] [employer] from Last 3 Months Insurance [facility] Care Teams Aircraft Engine Mechanic Relationship Specialty Start Date End Date Unknown, Provider PCP - General 02/14/25
--- NOTE | 2025-05-14 23:17 | PC.NURSE ---
PATIENT REPORTS THAT HE IS FEELING BETTER. NO LONGER RESTLESS
[2025-05-14] MEDS: metroNIDAZOLE 500 MG/ISO 100ML 500 MG/100 ML BAG 100 MG IVPB (23:48)
--- NOTE | 2025-05-14 23:59 | PC.NURSE ---
PATIENT CURRENTLY LAYING DOWN ON STRETCHER AFTER BEING MEDICATED FOR PAIN. CALL LIGHT IN REACH. SIGNIFICANT OTHER AT THE BEDSIDE
[2025-05-15] MEDS: levoFLOXacin 750 MG/D5W 150 ML 750 MG/150 ML BAG 100 MG IVPB (00:50)
--- NOTE | 2025-05-15 01:15 | PC.NURSE ---
RESTING QUIETLY ON STRETCHER. CALL LIGHT IN REACH. NO NEEDS VOICED
--- NOTE | 2025-05-15 02:00 | PC.NURSE ---
RESTING QUIETLY IN ROOM. SIGNIFICANT OTHER WENT HOME. CURRENTLY DENIES ANY NEEDS. CLEAR LIQUIDS WERE GIVEN PER DR SALGADO.
[2025-05-15] MEDS: SODIUM CHLORIDE 0.9% IV 1,000 ML 999 ML IV CONT (02:43)
[2025-05-15 03:00] VITALS: BP 144/80; PULSE 86; RESP 18; O2SAT 100
--- NOTE | 2025-05-15 03:05 | PC.NURSE ---
PATIENT IS CURRENTLY RESTING ON HOSPITAL BED. NS BOLUS INFUSING TO RIGHT AC. PATIENT DENIES ANY NEEDS AT THIS TIME. CALL LIGHT IN REACH. URINE TAKEN DOWN TO LAB
[2025-05-15 03:09] LABS: Add Urine Microscopic? YES; Appearance Urine Clear (Clear); Glucose Urine UA Negative (Negative); Leukocyte Esterase Ur Negative LEU/UL (Negative); Nitrate Urine Negative (Negative); Specific Grav Ur 1.010 (1.010-1.020)
--- NOTE | 2025-05-15 04:00 | PC.NURSE ---
RESTING QUIETLY ON HOSPITAL BED. REPORTS THAT HIS PAIN IS STARTING TO INCREASE. ER PROVIDER NOTIFIED
[2025-05-15] MEDS: ONDANSETRON INJ 4 MG/2 ML VIAL IV PUSH (04:05)
[2025-05-15] MEDS: HYDROmorphone HCL INJ (*CRX) 2 MG/ML VIAL 0.5 MG IV PUSH ×2 (04:05→07:52)
--- NOTE | 2025-05-15 05:00 | PC.NURSE ---
PATIENT APPEARS TO BE SLEEPING. RESP EVEN AND UNLABORED. CALL LIGHT IN REACH
--- NOTE | 2025-05-15 06:00 | PC.NURSE ---
PATIENT APPEARS TO BE SLEEPING. RESP EVEN AND UNLABORED. PATIENT HAS CALL LIGHT AT HIS SIDE.
--- NOTE | 2025-05-15 07:05 | PC.NURSE ---
REPORT GIVEN TO SIOMARA STOLL
[2025-05-15 07:19] VITALS: BP 132/83; PULSE 88; RESP 18; TEMP 36.9; O2SAT 99
[2025-05-15] MEDS: PROCHLORPERAZINE EDISYLATE 10 MG/2 ML VIAL IV PUSH (07:52)
[2025-05-15] MEDS: metroNIDAZOLE 500 MG/ISO 100ML 500 MG/100 ML BAG 100 MG IVPB (07:57)
[2025-05-15 08:45] VITALS: BP 130/74; PULSE 84; RESP 20; TEMP 36.9; O2SAT 97
--- NOTE | 2025-05-15 09:14 | PC.NURSE ---
family member arrives at this time. pt departed lobby ambulatory
== END 2025-05-15 08:45 | disposition left against medical advice (07) ==
PROVIDERS: Emergency Medicine; Emergency Provider Internal Medicine Critical Care Medicine
DX: K52.9 Noninfective gastroenteritis and colitis, unspecified (principal)
CPT/HCPCS: 36415; 74177; 80053; 81001; 83605; 83690; 85025; 96361; 96365; 96366; 96367; 96375; 96376; 99284; J0780; J1171; J1836; J1956; J2405; J7030; J7512; Q9967